=== PATIENT | male | born 1980 | race Caucasian/White ===

== ENCOUNTER 2020-03-17 17:51 | Emergency (ER) | payer OTHER, SELFPAY ==
[2020-03-17 17:58] VITALS: PULSE 65; RESP 20; TEMP 37.2; O2SAT 99; BMI 29.0
--- NOTE | 2020-03-17 18:37 | ED_ITS ---
HPI - Back Pain/Injury General Chief Complaint: Back Pain/Injury Stated Complaint: flank pain Time Seen by Provider: 03/17/20 18:18 Source: patient Mode of arrival: ambulatory Limitations: no limitations History of Present Illness HPI Narrative: patient presents to ED for back pain radiating down both legs. Patient states lower back pain began yesterday. Patient denies any flank pain, fever, chills, nausea, vomiting. Patient denies any urinary /bowel incontinence. Patient denies any recent trauma. Patient states history of chronic back pain since having an accident 6 months ago. Patient states back pain is worse on movement. Patient denies any hematuria, penile discharge, testicular pain, or dysuria. Related Data Previous Rx's Medication Instructions Recorded cyclobenzaprine 10 mg PO TID PRN #18 tab 03/17/20 naproxen 500 mg PO BID PRN #20 tab 03/17/20 Allergies Allergy/AdvReac Type Severity Reaction Status Date / Time No Known Allergies Allergy Verified 03/17/20 19:10 [No Known Allergies*] Review of Systems Review of Systems: Yes all other systems are reviewed and are negative Constitutional: Constitutional: Reports as per HPI and Reports no additional constitutional complaints Eyes: Eyes: Reports as per HPI and Reports no additional eye complaints ENT: Reports system reviewed and no additional complaints, except as doc umented and Reports as per HPI Cardiovascular: Cardiovascular: Reports as per HPI and Reports no additional cardiovascular complaints Respiratory: Respiratory: Reports as per HPI and Reports no additional respiratory complaints Gastrointestinal: Gastrointestinal: Reports as per HPI and Reports no additional gastrointestinal complaints Genitourinary: Genitourinary: Reports no additional male genitourinary complaints and Reports as per HPI Musculoskeletal: Musculoskeletal: Reports no additional musculoskeletal complaints, Reports as per HPI and Reports back pain Neurologic: Reports system reviewed and no additional complaints, except as documented and Reports as per HPI Psychiatric: Psychiatric: Reports no additional psychiatric complaints and Reports as per HPI [facility] Past Medical History Medical History (Updated 03/18/20 @ 00:00 by Background Daemon) No known health problems Social History Social History Smoked in Last 30 Days: No Use of substances other than those prescribed or required for medical reasons: No Advance Directives: No Advance Directives Information Provided: Yes Physical Exam Vital Signs: Vital Signs: Last Vital Signs Temp 98 F 03/17/20 19:12 Pulse 68 03/17/20 20:51 Resp 18 03/17/20 20:51 BP 115/77 03/17/20 20:51 Pulse Ox 96 03/17/20 20:51 Body Mass Index 29.0 Const: General: cooperative, healthy appearing, comfortable, no acute distress, well developed, alert and awake HENMT: Head: Yes normal to inspection and Yes No palpable skull fracture present Eyes: General: appearance normal, both eyes and all related structures Neck: Neck: Yes normal visual inspection, Yes full ROM, Yes no lymphadenopathy, Yes no meningeal signs, Yes trachea midline, Yes supple and No tender Chest: Chest palpation & inspection: normal inspection of the chest, normal palpation of entire chest wall and no localized rib tenderness Resp: Effort & Inspection: normal respiratory effort and able to speak in complete sentences Auscultation: clear to auscultation bilaterally Cardio: Jugular venous distension: no JVD Heart sounds: S1 normal heart sound present and S2 normal heart sound present GI: Other: Rectal exam: patient has good rectal tone and has sensation in perineal area and saddle. Inspection: Yes normal to inspection and No abdominal wall ecchymosis Palpation (GI): Soft to palpation, not firm, nontender, no guarding and not rigid : General: No CVA tenderness and Yes no CVA tenderness Back/Spine/Pelvis: Back: no CVA tenderness, No CVA tenderness and back tenderness ( Lower lumbar tenderness) Skin: General skin exam: no rashes or lesions noted Neuro: General: gait normal, tone normal, no meningeal signs and CN's II-XI intact bilaterally Cranial nerves: Yes CN's II-XII intact bilaterally Extrem: General: Yes normal to inspection and Yes full ROM Psych: Appearance: grossly normal and well [facility] Course Course Course Narrative: history physical exam does not indicate kidney stones. history physical exam indicates back pain exacerbation. Patient given Toradol and Flexeril. patient will have lumbar x-ray. Patient will have UA to see if there is any blood and there was blood patient will be sent for CT scan. Presently history physical exam does not indicate cord compression or epidural abscess. Patient does not have any history of drug use. Reevaluation(s) Reevaluation #1: x-ray shows arthritis of the back. History physical exam does not indicate cord compression or epidural abscess. Patient states pain feel better and able to walk on his own. Time: 20:29 MDM - Back Pain/Injury MDM Narrative Medical decision making narrative: lumbar arthritis Lab Data Labs: Lab Results 03/17/20 Range/Units 19:16 Urine Color YELLOW Urine Appearance CLEAR Urine pH 7.0 (5.0-8.0) Ur Specific [place] 1.020 (1.005-1.025) Urine Protein NEG (NEG-TRACE) MG/DL Urine Glucose (UA) NEG (NEG) MG/DL Urine Ketones NEG (NEG) MG/DL Urine Blood NEG (NEG) Urine Nitrite NEG (NEG) Ur Leukocyte Esterase NEG (NEG) Discharge Plan Discharge Clinical Impression: Lumbar radiculopathy Patient Disposition: Home, Self-Care Instructions: Lumbar Radiculopathy (ED) Additional Instructions: return to the ED immediately for worsening back pain, urinary / bowel incontinence, inability to walk, abdominal pain, flank pain, nausea, vomitting, fever, chills, dysuria, hematuria, testicular pain, or any other concerning symptoms. Please follow up with your PCP. Prescriptions: New naproxen 500 mg tablet 500 mg PO BID PRN (Reason: pain) Qty: 20 RF: 0 cyclobenzaprine 10 mg tablet 10 mg PO TID PRN (Reason: pain) Qty: 18 RF: 0 Stand Alone Forms: Work/School Release Interventions: ED Discharge Assessment Last Done: 03/17/20 20:52 Discharge Date/Time: 03/17/20 20:50 Print Language: Chinese
[2020-03-17 19:12] VITALS: BP 116/77; PULSE 63; RESP 18; TEMP 36.6; O2SAT 98
[2020-03-17] MEDS: Ketorolac Tromethamine 60 MG/2 ML VIAL IM (19:17)
[2020-03-17] MEDS: Cyclobenzaprine HCl 10 MG TABLET PO (19:17)
--- NOTE | 2020-03-17 19:39 | XR_ITS ---
EXAMINATION: XR LUMBOSACRAL SPINE CLINICAL INFORMATION: Lower back pain COMPARISON: Lumbar spine 01/18/2020 TECHNIQUE: Three views of the lumbosacral spine. FINDINGS: Compared with the prior study there has been no significant interval change. Again noted is a mild scoliosis convex to the right. Mild disc space narrowing seen at at L4-L5 and to a greater extent at L5-S1. Some anterior osteophytes are noted arising from S1. No acute fractures or bony destructive lesions seen. XR/XR lumbar spine 2-3V IMPRESSION: Scoliosis and degenerative changes most prominent at L5-S1, unchanged when compared to the prior study.
[2020-03-17 19:43] LABS: Glucose Urine UA NEG (NEG); Leukocyte Esterase Urine NEG (NEG); Nitrite Urine NEG (NEG); Urine Blood NEG (NEG); Urine Ketones NEG (NEG); Urine Protein NEG (NEG-TRACE)
[2020-03-17 19:46] LABS: Appearance Urine CLEAR; Color Urine YELLOW
[2020-03-17 20:51] VITALS: BP 115/77; PULSE 68; RESP 18; O2SAT 96
== END 2020-03-17 20:50 | disposition home or self-care (01) ==
PROVIDERS: Physician Assistant; Emergency Provider Emergency Medicine
DX: M54.16 Radiculopathy, lumbar region (principal); M54.5 Low back pain; M79.605 Pain in left leg; M79.604 Pain in right leg; Z79.899 Other long term (current) drug therapy
CPT/HCPCS: 72100; 81003; 96372; 99284; J1885

== ENCOUNTER 2020-08-23 18:18 | Emergency (ER) | payer OTHER, SELFPAY ==
[2020-08-23 19:12] VITALS: BP 128/78; PULSE 69; RESP 16; TEMP 37; O2SAT 98; BMI 29.1
--- NOTE | 2020-08-23 20:40 | ED.EYEPROB ---
HPI - Eye Problem General Chief complaint: Eye Problems Stated complaint: eye issue Time Seen by Provider: 08/23/20 20:39 Source: patient Mode of arrival: ambulatory Limitations: no limitations History of Present Illness HPI Narrative: Right eye redness/irritation for past 2 days woke up with discharge. Does not wear contacts. No recent injury or foreign body. chief complaint: eye redness Onset (ago): day(s) Onset description: gradual Duration: constant Location: right eye Eye Symptoms: burning and redness Place: home Mechanism: none Severity: mild Associated symptoms: none Treatments Prior to Arrival: none Related Data Previous Rx's Medication Instructions Recorded cyclobenzaprine 10 mg PO TID PRN #18 tab 03/17/20 naproxen 500 mg PO BID PRN #20 tab 03/17/20 erythromycin 0.5 inch OPHTHALMIC (EYE) QID 7 08/23/20 Days #1 g Allergies Allergy/AdvReac Type Severity Reaction Status Date / Time No Known Allergies Allergy Verified 08/23/20 19:19 [No Known Allergies*] Review of Systems Review of Systems: Constitutional: No Weight loss, No Fever, No Chills, No Night Sweats, No Fatigue, No Malaise ENT/Mouth: No Hearing loss, No Ear Pain, No Nasal Congestion, No Sinus Pain, No Hoarseness, No sore throat, No Rhinorrhea, No Swallowing Difficulty Eyes: No Eye Pain, No Swelling, + Redness, No Foreign Body, No Discharge, No Vision Changes Cardiovascular: No Chest Pain, No SOB, No Dyspnea on Exertion, No Orthopnea, No Edema, No Palpitations Respiratory: No Cough, No Sputum, No Wheezing, No Smoke Exposure, No Dyspnea Gastrointestinal: No Nausea, No Vomiting, No Diarrhea, No Constipation, No abdominal Pain, No Hematochezia, No Melena Genitourinary: Neg Musculoskeletal: No joint pain, No Myalgias, No Joint Swelling Skin: No Skin Lesions, No rash Neuro: No Weakness, No Numbness, No Paresthesias, No Loss of Consciousness, No Dizziness, No Headache Psych: No Social Issues Heme/Lymph: No Bruising, No Bleeding,No Lymphadenopathy Endocrine: No Polyuria, No Polydipsia, No Temperature Intolerance Yes all other systems are reviewed and are negative PMFSH Past Medical History Medical History Cataract Early cataracts, bilateral No known health problems Social History Social History Advance Directives: No Advance Directives Information Provided: No Physical Exam Vital Signs: Vital Signs: Last Vital Signs Temp 98.6 F 08/23/20 19:12 Pulse 69 08/23/20 19:12 Resp 16 08/23/20 19:12 BP 128/78 08/23/20 19:12 Pulse Ox 98 08/23/20 19:12 Body Mass Index 29.1 Reviewed Const: General: cooperative, healthy appearing, comfortable, no acute distress, well developed, alert and awake HENMT: Head: Yes normal to inspection Ears: hearing grossly normal bilaterally Eyes: General: appearance normal, both eyes and all related structures Visual Jacinto: normal visual jacinto by confrontation Conjunctivae: conjunctival abnormal (Erythematous and injected) right Sclerae: sclerae normal Corneas: corneas normal Pupils: Equal, round and reactive pupils present EOM: EOMs intact bilaterally Resp: Effort & Inspection: normal respiratory effort, no audible wheezes, no cough and no respiratory distress Skin: General skin exam: no rashes or lesions noted, elasticity normal and turgor normal Wounds: no wounds Nails: normal Neuro: General: normal sensation to monofilament Cranial nerves: Yes Equal, round and reactive pupils present Extrem: General: No cyanosis Psych: Appearance: grossly normal and well kempt Discharge Plan Discharge Clinical Impression: Bacterial conjunctivitis Patient Disposition: Home, Self-Care Instructions: Conjunctivitis (ED) Prescriptions: New erythromycin 5 mg/gram (0.5 %) ointment 0.5 inch ophthalmic (eye) QID 7 Days Qty: 1 RF: 1 No Action naproxen 500 mg tablet 500 mg PO BID PRN (Reason: pain) Qty: 20 RF: 0 cyclobenzaprine 10 mg tablet 10 mg PO TID PRN (Reason: pain) Qty: 18 RF: 0 Referrals: ED Physician,Generic [Emergency Provider] - 2 days Stand Alone Forms: Work/School Release
== END 2020-08-23 21:13 | disposition home or self-care (01) ==
PROVIDERS: Emergency Provider Internal Medicine
DX: H10.9 Unspecified conjunctivitis (principal); H57.11 Ocular pain, right eye
CPT/HCPCS: 99283

== ENCOUNTER 2020-10-02 23:28 | Inpatient (IN) | payer OTHER, SELFPAY ==
--- NOTE | ~2020-10-02 | CT_ITS ---
EXAMINATION: CT ABDOMEN AND PELVIS WITHOUT CONTRAST CLINICAL INFORMATION: Right flank pain COMPARISON: 12/11/2016 TECHNIQUE: Multidetector volumetric imaging was performed from the superior aspect of the liver through the pubic symphysis. Sagittal and coronal reformatted images were obtained on the technologist's workstation. This CT examination was performed using dose optimization techniques as appropriate, variously including the following: *Automated exposure control *Adjustment of mA and/or kV according to patient size (this includes techniques or standardized protocols for targeted exams where dose is matched to indication/reason for exam; i.e. extremities or head) *Use of iterative reconstruction technique DLP: 626 mGy-cm FINDINGS: LUNG BASES: The visualized lung bases are unremarkable. LIVER, GALLBLADDER, AND BILIARY TREE: The liver is normal in size, shape, and attenuation. Right hepatic lobe calcifications suggestive of granuloma. No biliary ductal dilatation is present. The gallbladder is unremarkable with no evidence of radiopaque gallstones, gallbladder wall thickening, or obvious pericholecystic inflammatory changes. PANCREAS: Unremarkable. SPLEEN: Unremarkable. ADRENAL GLANDS: Unremarkable. KIDNEYS AND URETERS: There is a 4 mm calculus in the distal right ureter near the ureterovesicular junction with mild hydronephrosis. No left hydronephrosis. Punctate calculus noted in the lower left kidney. BLADDER: Minimally distended and grossly unremarkable. GASTROINTESTINAL TRACT: Free air is present around the splenic flexure and proximal descending colon. There is some mural prominence of the proximal descending colon, though the colon is not fully distended in this region. No evidence of bowel obstruction. No free fluid is seen. Patient is status post appendectomy. ABDOMINAL WALL: No significant hernia is appreciated. LYMPH NODES: Normal. VASCULAR: Unremarkable. PELVIC VISCERA: Unremarkable. OSSEOUS STRUCTURES: Bilateral L5 pars defects are noted. There is disc space narrowing and endplate osteophytosis at L5-S1. CT/CT abdomen pelvis wo con IMPRESSION: 1. Free air adjacent to the splenic flecture and proximal descending colon most suspicious for sequelae of bowel perforation. There is some mural prominence of the proximal descending colon which could be secondary to inflammation. Colonic mass cannot be excluded. 2. Distal right ureteral calculus measuring 4 mm with mild right hydronephrosis. This critical result was discussed with Dr. Malik on 10/03/2020 2:42 AM, and it was ascertained that the content and urgency of the report was understood at the time of direct communication.
--- NOTE | ~2020-10-02 | CT_ITS ---
EXAMINATION: CT ABDOMEN AND PELVIS WITHOUT CONTRAST CLINICAL INFORMATION: Free air. Follow-up COMPARISON: CT abdomen and pelvis 10/03/2020 TECHNIQUE: Multidetector volumetric imaging was performed from the superior aspect of the liver through the pubic symphysis. Sagittal and coronal reformatted images were obtained on the technologist's workstation. This CT examination was performed using dose optimization techniques as appropriate, variously including the following: *Automated exposure control *Adjustment of mA and/or kV according to patient size (this includes techniques or standardized protocols for targeted exams where dose is matched to indication/reason for exam; i.e. extremities or head) *Use of iterative reconstruction technique DLP: 525 mGy-cm FINDINGS: LUNG BASES: There is bibasilar atelectasis or scarring. Heart size is normal. LIVER, GALLBLADDER, AND BILIARY TREE: The liver is normal in size, shape, and attenuation. No focal hepatic lesion or biliary ductal dilatation is present. There is a punctate calcification in the right hepatic lobe. No focal lesions seen. There is no intrahepatic ductal dilatation. The gallbladder is unremarkable with no evidence of radiopaque gallstones, gallbladder wall thickening, or obvious pericholecystic inflammatory changes. PANCREAS: Unremarkable. SPLEEN: Unremarkable. ADRENAL GLANDS: Unremarkable. KIDNEYS AND URETERS: The kidneys are normal in size, shape, and attenuation. There is mild hydroureteronephrosis with proximal periureteral and inferior pole perinephric stranding. Previously visualized 4 mm right distal ureteral stone is not visualized at this time. No radiopaque calculi seen in the kidneys. There is no left-sided hydronephrosis. BLADDER: Unremarkable. GASTROINTESTINAL TRACT: The small and large bowel are unremarkable. There are surgical sutures of the tip of the appendix likely from previous appendectomy. The appendix is not visualized. ABDOMINAL WALL: A small umbilical hernia containing fat is noted. LYMPH NODES: Normal. VASCULAR: Unremarkable. PELVIC VISCERA: Unremarkable. OSSEOUS STRUCTURES: No lytic or sclerotic process seen. There is mild degenerative changes and ventral and posterior spondylosis at L5-S1 disc level. CT/CT abdomen pelvis wo con IMPRESSION: The right distal ureteral stone seen on the previous exam has resolved. There is mild hydroureteronephrosis and periureteral and perinephric stranding which is stable. No radiopaque renal calculi seen. Mild constipation.
[2020-10-03] VITALS (10 sets, daily range): BP systolic 109–132; BP diastolic 59–85; PULSE 64–83; RESP 16–20; TEMP 36.3–37.4; O2SAT 96–100; BMI 28.5
[2020-10-03 00:55] LABS: MANUAL DIFF FLAG NO
[2020-10-03 00:58] LABS: Basophils Percent Auto 0.2 % (0-2); Eosinophils Absolute Auto 0.1 X10*3/uL (0.0-0.4); Eosinophils Percent Auto 0.3 % (0-4); Hematocrit 44.3 % (42-52); Hemoglobin 15.2 g/dl (14.0-18.0); Imm Gran Abs Auto 0.09 X10*3/uL (0.00-0.03); Imm Gran Pct Auto 0.5 % (0.0-0.4); Lymphocytes Absolute Auto 1.7 X10*3/uL (1.2-4.9); Lymphocytes Percent Auto 9.3 % (20-40); Mean Corpuscular HGB Conc 34.3 g/dl (31.0-36.0); Mean Corpuscular Hemoglobin 30.2 pg (27.0-33.0); Mean Corpuscular Volume 88.1 fL (80-98); Mean Platelet Volume 10.5 fL (9.4-12.4); Monocytes Absolute Auto 1.1 X10*3/uL (0.1-1.2); Monocytes Percent Auto 6.1 % (2-11); Neutrophils Absolute Auto 15.1 X10*3/uL (2.0-8.3); Neutrophils Percent Auto 83.6 % (45-73); Platelet Count 286 X10*3/uL (160-400); Red Blood Count 5.03 X10*6/uL (4.60-5.80); Red Cell Distribution Width 11.9 % (11.0-16.0); White Blood Count 18.1 X10*3/uL (4.8-10.8)
[2020-10-03 01:00] LABS: Glucose Urine UA NEG (NEG); Leukocyte Esterase Urine NEG (NEG); Nitrite Urine NEG (NEG); Specific Gravity - Urine >= 1.030 (1.005-1.025); Urine Blood 2+ (NEG); Urine Ketones NEG (NEG); Urine Protein NEG (NEG-TRACE)
[2020-10-03 01:05] LABS: Appearance Urine CLEAR; Color Urine YELLOW
[2020-10-03 01:19] LABS: Bacteria Urine 1+ /LPF; Squamous Epithelial Cell Urine 1+ /LPF
[2020-10-03 01:20] LABS: Mucus Urine 1+ /LPF
[2020-10-03 01:22] LABS: Alanine Aminotransferase 39 U/L (0-40); Albumin Level 4.5 g/dL (3.5-5.0); Alkaline Phosphatase 68 U/L (39-117); Anion Gap 17 (12-20); Aspartate Amino Transferase 17 U/L (5-37); Bilirubin Total 0.6 mg/dL (0.0-1.0); Blood Urea Nitrogen 21 mg/dL (9-16); Calcium 9.9 mg/dL (8.4-10.2); Carbon Dioxide 24 mmol/L (22-29); Chloride 104 mmol/L (96-108); Creatinine Clr Calc Pharmacy 79.2; Estimated Glomerular Filt Rate 54; Glucose Random 207 mg/dL (60-115); Potassium 4.1 mmol/L (3.3-5.1); Sodium 141 mmol/L (135-145); Total Protein 7.3 g/dL (6.5-8.0)
[2020-10-03] MEDS: HYDROmorphone HCl 0.5 MG/0.5 ML SYRINGE IVPUSH ×2 (01:59→08:11)
[2020-10-03] MEDS: 0.9 % Sodium Chloride 1,000 ML 999 ML IV (01:59)
[2020-10-03] MEDS: ondansetron HCL 4 MG/2 ML VIAL IVPUSH ×2 (01:59→13:41)
[2020-10-03] MEDS: Ketorolac Tromethamine 15 MG/ML VIAL IVPUSH (01:59)
--- NOTE | 2020-10-03 02:10 | ED.ABDPAIN ---
HPI - Abdominal Pain General Chief Complaint: Abdominal Pain Stated Complaint: Abd pain Time Seen by Provider: 10/03/20 01:46 History of Present Illness HPI narrative: Patient 40-year-old male presents today with having abdominal pain over the right flank area. Sharp. No fever no chills. Patient already had an appendectomy. Positive nausea. No vomiting. No change in bowel movement. Patient from home. Never had a kidney stone in the past. Pain is 10/10. Not change with movement. Related Data Previous Rx's Medication Instructions Recorded cyclobenzaprine 10 mg PO TID PRN #18 tab 03/17/20 naproxen 500 mg PO BID PRN #20 tab 03/17/20 erythromycin 0.5 inch OPHTHALMIC (EYE) QID 7 08/23/20 Days #1 g Allergies Allergy/AdvReac Type Severity Reaction Status Date / Time No Known Allergies Allergy Verified 08/23/20 19:19 [No Known Allergies*] Review of Systems Review of Systems Constitutional: No Weight loss, No Fever, No Chills, No Night Sweats, No Fatigue, No Malaise ENT/Mouth: No Hearing loss, No Ear Pain, No Nasal Congestion, No Sinus Pain, No Hoarseness, No sore throat, No Rhinorrhea, No Swallowing Difficulty Eyes: No Eye Pain, No Swelling, No Redness, No Foreign Body, No Discharge, No Vision Changes Cardiovascular: No Chest Pain, No SOB, No Dyspnea on Exertion, No Orthopnea, No Edema, No Palpitations Respiratory: No Cough, No Sputum, No Wheezing, No Smoke Exposure, No Dyspnea Gastrointestinal: Positive Nausea, No Vomiting, No Diarrhea, No Constipation, positive abdominal Pain, No Hematochezia, No Melena Genitourinary: no irregular bleeding, No Dysuria, No Urinary Frequency, No Hematuria, No Urinary Incontinence, No Urgency, No Flank Pain, No Urinary Flow Changes, No Hesitancy Musculoskeletal: No joint pain, No Myalgias, No Joint Swelling Skin: No Skin Lesions, No rash Neuro: No Weakness, No Numbness, No Paresthesias, No Loss of Consciousness, No Dizziness, No Headache Psych: No Anxiety/Panic, No Depression, No SI/HI/AH/VH, No Social Issues, Heme/Lymph: No Bruising, No Bleeding,No Lymphadenopathy Endocrine: No Polyuria, No Polydipsia, No Temperature Intolerance Physical Exam Vital Signs: Vital Signs: Last Vital Signs Temp 97.3 F 10/03/20 00:55 Pulse 74 10/03/20 00:55 Resp 20 10/03/20 01:59 BP 120/85 10/03/20 00:55 Pulse Ox 100 10/03/20 00:55 Body Mass Index 28.5 Appearance: Alert. Oriented X3. No acute distress. Eyes: Pupils equal, round and reactive to light. ENT: Pharynx normal. Neck: Normal inspection. Neck supple. No lymph nodes noted. No crepitus CVS: Normal heart rate and rhythm. Pulses normal. Normal S1 and S2 Respiratory: No respiratory distress. Breath sounds normal. No Wheezing. No rales Abdomen: Soft and nontender. No rigidity. No distention. good BS x4 Skin: Skin warm and dry. Normal skin color. Normal skin turgor. Extremities: No lower extremity edema. Neurovascular intact to all extremities. No Lacerations. No Rash Neuro: Oriented X 3. No motor deficit. No sensory deficit. Moving all extermities. No slurred speech MDM - Abdominal Pain MDM Narrative Medical decision making narrative: Positive CVA tenderness on the right side. Question kidney stones. We will go ahead and get a CT scan of the abdomen pelvis. Currently in stable condition. Given pain medication in the emergency department. CT scan of the abdomen suggestive of a kidney stone in the right ureter. In addition there was free air that was noted. Cultures will be obtained. Antibiotic will be started. Patient's white count was elevated. Patient's case discussed with surgery. Will admit patient for further evaluation and monitoring. Currently in stable condition. Lab Data Result diagrams: 10/03/20 00:45 10/03/20 00:45 Labs: Lab Results 10/03/20 10/03/20 10/03/20 Range/Units 00:45 00:45 00:45 WBC 18.1 H (4.8-10.8) X10*3/uL RBC 5.03 (4.60-5.80) X10*6/uL Hgb 15.2 (14.0-18.0) g/dl Hct 44.3 (42-52) % MCV 88.1 (80-98) fL MCH 30.2 (27.0-33.0) pg MCHC 34.3 (31.0-36.0) g/dl RDW 11.9 (11.0-16.0) % Plt Count 286 (160-400) X10*3/uL MPV 10.5 (9.4-12.4) fL Immature Gran % (Auto) 0.5 H (0.0-0.4) % Neut % (Auto) 83.6 H (45-73) % Lymph % (Auto) 9.3 L (20-40) % [place] % (Auto) 6.1 (2-11) % Eos % (Auto) 0.3 (0-4) % Baso % (Auto) 0.2 (0-2) % Lymph # (Auto) 1.7 (1.2-4.9) X10*3/uL [place] # (Auto) 1.1 (0.1-1.2) X10*3/uL Eos # (Auto) 0.1 (0.0-0.4) X10*3/uL Baso # (Auto) 0.0 (0.0-0.2) X10*3/uL Abs Immat Gran (auto) 0.09 H (0.00-0.03) X10*3/uL Absolute Neuts (auto) 15.1 H (2.0-8.3) X10*3/uL Absolute Nucleated RBC 0.000 (0.0-0.012) X10*3/uL Nucleated RBC % (auto) 0.0 (0.0-0.2) /100WBC Sodium 141 (135-145) mmol/L Potassium 4.1 (3.3-5.1) mmol/L Chloride 104 (96-108) mmol/L Carbon Dioxide 24 (22-29) mmol/L Anion Gap 17 (12-20) BUN 21 H (9-16) mg/dL Creatinine 1.43 H (0.5-1.4) mg/dL Estim Creat Clear Calc 79.2 Estimated GFR 54 Random Glucose 207 H (60-115) mg/dL Calcium 9.9 (8.4-10.2) mg/dL Total Bilirubin 0.6 (0.0-1.0) mg/dL AST 17 (5-37) U/L ALT 39 (0-40) U/L Alkaline Phosphatase 68 (39-117) U/L Total Protein 7.3 (6.5-8.0) g/dL Albumin 4.5 (3.5-5.0) g/dL Urine Color YELLOW Urine Appearance CLEAR Urine pH 6.0 (5.0-8.0) Ur Specific [place] >= 1.030 H (1.005-1.025) Urine Protein NEG (NEG-TRACE) MG/DL Urine Glucose (UA) NEG (NEG) MG/DL Urine Ketones NEG (NEG) MG/DL Urine Blood 2+ H (NEG) Urine Nitrite NEG (NEG) Ur Leukocyte Esterase NEG (NEG) Urine RBC 15-29 H (0) /HPF Urine WBC 1-4 (0-4) /HPF Ur Squamous Epith Cells 1+ /LPF Urine Bacteria 1+ /LPF Urine Mucus 1+ /LPF Critical Care Time Critical Care Time Total Critical Care Time: 40 Attestation: I have personally provided 40 minutes of critical care time exclusive of time spent on separately billable procedures. Time includes review of lab data, radiology results, discussion with consultants, and monitoring for potential decompensation. Interventions were performed as documented above Discharge Plan Discharge Clinical Impression: Renal colic, Perforation bowel Prescriptions: No Action naproxen 500 mg tablet 500 mg PO BID PRN (Reason: pain) Qty: 20 RF: 0 cyclobenzaprine 10 mg tablet 10 mg PO TID PRN (Reason: pain) Qty: 18 RF: 0 erythromycin 5 mg/gram (0.5 %) ointment 0.5 inch ophthalmic (eye) QID 7 Days Qty: 1 RF: 1 PMFSH Past Medical History Attestation statement: The following information was validated with the patient. Medical History Cataract Early cataracts, bilateral No known health problems Social History Social History Advance Directives: No Advance Directives Information Provided: No
--- NOTE | 2020-10-03 07:16 | PM.HPGS ---
History of Present Illness History of Present Illness Date of Service: 10/03/20 Chief complaint: R ureteral stone possible contained perforation Narrative: Arthur Ng is a 40 year old male who was feeling well until last night when he had acute onset of right lower quadrant abdominal pain. The pain was waxing and waning, severe in intensity at its worst. He had not experienced similar pain in the past. He does not report fever or chills. He had 1 episode of loose stool yesterday. Bowel movements have been normal otherwise. Appetite has been good. He does not report dysuria or hematuria. He has not undergone colonoscopy in the past. He reports that he has experienced occasional bright red bleeding with bowel movements that occurs if he eats very spicy food. He reports a history of hemorrhoids. In the emergency department, a CT scan of the abdomen and pelvis was obtained. This demonstrated a right ureteral stone, but also findings consistent with perforation of the colon in the region of the splenic flexure. Laboratory studies revealed an elevated white blood count of 18.2 and BUN of 21, creatinine of 1.43. Blood sugar was elevated at 207. Review of Systems Constitutional: Constitutional: Denies body ache(s), Denies chills, Denies fever(s) and Denies headache(s) Eyes: Comments: History of right eye surgery, chronic erythema ENT: Reports Normal hearing present, Denies vertigo, Denies dizziness and Denies headache(s) Cardiovascular: Cardiovascular: Denies chest pain, Denies palpitations and Denies dyspnea Comments: History of chest pain several months ago. He saw a student success advisor for this and reports that he is waiting to have testing scheduled, which he thinks will be 1 month of monitoring Respiratory: Respiratory: Denies cough, Denies dyspnea and Denies wheezing Gastrointestinal: Gastrointestinal: Reports as per HPI Genitourinary: Genitourinary: Reports no additional male genitourinary complaints Musculoskeletal: Musculoskeletal: Reports back pain (Intermittent, related to heavy lifting at work) Neurologic: Reports Normal hearing present, Denies vertigo, Denies dizziness and Denies headache(s) Endocrine: Endocrine: Denies palpitations Hematologic/Lymphatic: Comments: No history of unusual bleeding or blood clots Allergic/Immunologic: Allergic/Immunologic: Denies wheezing PMFSH Past Medical History Medical History Cataract Early cataracts, bilateral No known health problems Surgical History Surgical History (Updated 10/03/20 @ 07:24 by Zulema Swenson MD) History of eye surgery History of laparoscopic appendectomy Social History Social History Advance Directives: No Advance Directives Information Provided: No Meds Allergies Allergy/AdvReac Type Severity Reaction Status Date / Time No Known Allergies Allergy Verified 10/03/20 05:25 [No Known Allergies*] Physical Exam Vital Signs: Vital Signs: Last Vital Signs Temp 97.3 F 10/03/20 00:55 Pulse 74 10/03/20 00:55 Resp 20 10/03/20 01:59 BP 120/85 10/03/20 00:55 Pulse Ox 100 10/03/20 00:55 Body Mass Index 28.5 Const: Other: Appears uncomfortable intermittently General: cooperative and alert HENMT: Head: Yes normocephalic and Yes atraumatic Eyes: Sclerae: scleral abnormal right (Injected) scleral injection (Right) Neck: Neck: Yes trachea midline and Yes supple Resp: Effort & Inspection: normal respiratory effort Auscultation: clear to auscultation bilaterally Cardio: Rate: regular rate Rhythm: regular rhythm GI: Other: Round, semi firm, mildly tender right lower quadrant, bowel sounds active, no palpable masses, no other abdominal tenderness, specifically no left upper quadrant tenderness Skin: Other: Normal color, warm and dry Neuro: Cranial nerves: Yes Normal hearing present Extrem: General: Yes normal to inspection Psych: Other: Com, cooperative Insight: Good insight present (Psych) Results Results Labs: Short CBC 10/03/20 Range/Units 00:45 WBC 18.1 H (4.8-10.8) X10*3/uL Hgb 15.2 (14.0-18.0) g/dl Hct 44.3 (42-52) % Plt Count 286 (160-400) X10*3/uL BMP 10/03/20 00:45 Sodium 141 Potassium 4.1 Chloride 104 Carbon Dioxide 24 BUN 21 H Creatinine 1.43 H Calcium 9.9 Liver Function 10/03/20 Range/Units 00:45 Total Bilirubin 0.6 (0.0-1.0) mg/dL AST 17 (5-37) U/L ALT 39 (0-40) U/L Alkaline Phosphatase 68 (39-117) U/L Albumin 4.5 (3.5-5.0) g/dL Urine 10/03/20 Range/Units 00:45 Urine Color YELLOW Urine Appearance CLEAR Urine pH 6.0 (5.0-8.0) Ur Specific Emerson >= 1.030 H (1.005-1.025) Urine Protein NEG (NEG-TRACE) MG/DL Urine Glucose (UA) NEG (NEG) MG/DL Assessment and Plan (1) Renal colic: Status: Acute IV hydration, analgesics, strain urine (2) Perforation bowel: Status: Acute 40-year-old male presenting with colicky right lower quadrant abdominal pain and CT findings demonstrating a right ureteral stone, but also findings consistent with likely contained perforation around splenic flexure of the colon. He has no associated symptoms. He will be admitted for observation and IV antibiotic therapy. I reviewed the findings with him and explained that urgent surgery might be required. If he remains asymptomatic, short interval CT scan will be obtained to reassess the process. Further plans will be made depending upon his clinical progress. Will follow blood sugar, renal function. He is aware that if recovery is uneventful, interval colonoscopy will be needed. Procedures Date of Service Date of Service: 10/03/20
[2020-10-03 07:44] LABS: IDNOW Serial# 9DD0AD1C
[2020-10-03 07:45] LABS: COVID-19 Test Negative (Negative)
[2020-10-03] MEDS: Piperacillin Sodium/Tazobactam 3.375 GM in 0.9 % Sodium Chloride 50 ML IV ×3 (08:12→19:18)
[2020-10-03 08:29] LABS: Lactic Acid 1.6 mmol/L (0.5-2.0)
--- NOTE | 2020-10-03 10:18 | PC.NURSE ---
PT AOX4, MEDICATED FOR PAIN STATES LEVEL IS IMPROVED, AMB WITH STEADY GAIT. PT STATES WITH LAST VOID HE NOTICED BLOOD. PT NEEDS BEING MET
[2020-10-03] MEDS: 0.9 % Sodium Chloride 1,000 ML 100 ML IVCONT ×2 (11:33→19:11)
--- NOTE | 2020-10-03 11:35 | PC.NURSE ---
0159 PAIN REASSESSMENT NOT CHARTED BY PREVIOUS SHIFT
[2020-10-03] MEDS: oxyCODONE HCl Immed Release 5 MG TABLET 10 MG PO ×2 (13:41→19:33)
--- NOTE | 2020-10-03 15:19 | PC.NURSE ---
UNIT WOULD NOT TAKE REPORT BECAUSE ANOTHER 8HR RN WAS TAKING OVER FOR THE ONE THAT IS LEAVING
--- NOTE | 2020-10-03 15:46 | MHC.CM.ED ---
PATIENT LIVES ALONE. HE HAS DAILY RN VISITS THROUGH [facility]. HE DOES QUALIFY FOR ORNAMENTAL IRONWORKER SERVICES, BUT NO ONE HAS STARTED YET. NO DME PATIENT HAS HAD HIS ONE DOSE OF EZIO AND EZIO COVID VACCINE APPROXIMATELY TWO WEEKS PRIOR. IMM 10/03 SIGNED AND COPY IN CHART.
--- NOTE | 2020-10-03 16:11 | PM.EVENT ---
Event Note Date of Service: 10/03/20 Event Note: Reports less RLQ discomfort, no other abdominal pain BP 132/81, HR 83, T 98.2, Resp 16 Alert, NAD Abdomen is soft, mildly tender RLQ, otherwise nontender. Continue Clear liquid diet, Zosyn. If remains asymptomatic with regard to splenic flexure of colon, likely will repeat CT tomorrow, consider advancing diet if stable.
[2020-10-03 16:32] LABS: Glucose, Whole Blood 122 mg/dL (60-115)
[2020-10-03 20:24] LABS: Glucose, Whole Blood 122 mg/dL (60-115)
[2020-10-04] VITALS (7 sets, daily range): BP systolic 98–126; BP diastolic 65–78; PULSE 62–72; RESP 15–18; TEMP 36.2–37; O2SAT 97–100
[2020-10-04] MEDS: Piperacillin Sodium/Tazobactam 3.375 GM in 0.9 % Sodium Chloride 50 ML IV ×4 (01:13→20:08)
[2020-10-04] MEDS: oxyCODONE HCl Immed Release 5 MG TABLET 10 MG PO (01:21)
[2020-10-04] MEDS: 0.9 % Sodium Chloride 1,000 ML 100 ML IVCONT ×2 (05:25→16:14)
[2020-10-04 07:14] LABS: Hematocrit 42.1 % (42-52); Hemoglobin 14.3 g/dl (14.0-18.0); Mean Corpuscular Hemoglobin 30.6 pg (27.0-33.0); Mean Corpuscular Volume 90.1 fL (80-98); Mean Platelet Volume 10.7 fL (9.4-12.4); Platelet Count 213 X10*3/uL (160-400); Red Blood Count 4.67 X10*6/uL (4.60-5.80); Red Cell Distribution Width 12.3 % (11.0-16.0); White Blood Count 9.3 X10*3/uL (4.8-10.8)
--- NOTE | 2020-10-04 07:25 | PM.PNGS ---
Subjective Subjective Date of Service: 10/04/20 Interval history: patient reports some pain in the right lower quadrant, pain is better today than yesterday. Physical Exam Vital Signs: Vital Signs: Last Vital Signs Temp 97.6 F 10/04/20 07:23 Pulse 62 10/04/20 07:23 Resp 18 10/04/20 07:23 BP 110/66 10/04/20 07:23 Pulse Ox 97 10/04/20 07:23 Body Mass Index 28.5 Const: General: cooperative, comfortable, no acute distress, well developed, alert and awake Resp: Effort & Inspection: normal respiratory effort, no stridor and not tachypneic GI: Other: soft, nondistended, mild tenderness in the right lower quadrant, no rebound, no guarding Abdomen image: 1. site of max tenderness Skin: General skin exam: no rashes or lesions noted Extrem: General: Yes no clubbing, cyanosis or edema Progress Note: A&P Assessment and plan (1) Renal colic: Status: Acute Assessment and Plan: Continue fluid hydration, pain management (2) Perforation bowel: Status: Acute Assessment and Plan: Minimal abdominal pain this morning, improved from yesterday and no peritoneal signs on examination. Check AM labs, plan follow up CT abdomen/pelvis in 24 hours to evaluate free air. Continue Zosyn. Fall Risk Details Current Medications: Current Medications Generic Name Dose Route Start Last Admin Trade Name Freq PRN Reason Stop Dose Admin Acetaminophen 650 mg 10/03/20 12:48 Acetaminophen 325 Mg Tablet PO Q6H PRN Fever Hydromorphone HCl 0.5 mg 10/03/20 12:48 Hydromorphone Hcl 0.5 Mg/0.5 Ml Syringe IV Q3H PRN Pain, Severe (Pain Scale 7-10) Sodium Chloride 1,000 mls @ 100 mls/hr 10/03/20 07:45 10/04/20 05:25 Ns IVCONT 100 mls/hr .Q10H MARCIA Administration Piperacillin Sod/Tazobactam 50 mls @ 100 mls/hr 10/03/20 14:00 10/04/20 01:43 Sod 3.375 gm/ Sodium Chloride IV Infused Q6H MARCIA Infusion Ondansetron HCl 4 mg 10/03/20 12:48 10/03/20 13:41 Ondansetron Hcl 4 Mg/2 Ml Vial IVPUSH 4 mg Q8H PRN Administration Nausea Oxycodone HCl 10 mg 10/03/20 12:48 10/04/20 01:21 Oxycodone Hcl Immed Release 5 Mg Tablet PO 10 mg Q4H PRN Administration Pain, Severe (Pain Scale 7-10) Time Spent With Patient Time: Total time spent is greater than 50% in coordination of care (as documented) at patient's floor/unit and/or counseling patient: Time with patient: 15 - 24 minutes Procedures Date of Service Date of Service: 10/04/20
[2020-10-04 07:50] LABS: Anion Gap 11 (12-20); Blood Urea Nitrogen 16 mg/dL (9-16); Calcium 8.6 mg/dL (8.4-10.2); Carbon Dioxide 24 mmol/L (22-29); Chloride 109 mmol/L (96-108); Creatinine Clr Calc Pharmacy 69.4; Estimated Glomerular Filt Rate 47; Glucose Fasting 107 mg/dL (60-99); Potassium 4.3 mmol/L (3.3-5.1); Sodium 140 mmol/L (135-145)
[2020-10-04 07:52] LABS: Glucose, Whole Blood 143 mg/dL (60-115)
[2020-10-04 12:02] LABS: Glucose, Whole Blood 92 mg/dL (60-115)
--- NOTE | 2020-10-04 14:03 | PC.NURSE ---
0800 passed sm black stone, found in strainer. Denies pain.
--- NOTE | 2020-10-04 15:14 | MHC.CM.PN ---
CM MET WITH PT WITH THE ASSISTANCE OF [facility] [employer]., PT REPORTS HE LIVES WITH HIS AND KIDS AND IS INDEPENDENT WITH CARE, WORKS AND DRIVES. PT DENIES USING DME OR HOME SERVICES. PT DOES NOT HAVE A HCP AND DECLINES TO COMPLETE ONE TODAY. PT REPORTS HE DOES NOT HAVE A PCP AT THIS TIME, PT EDUCATED ON HOW TO OBTAIN ONE BASED ON HIS INSURANCE. CURRENT DC PLAN IS HOME WITH NO SERVICES PT WILL SELF ARRANGE TRANSPORT
[2020-10-04 16:15] LABS: Glucose, Whole Blood 94 mg/dL (60-115)
[2020-10-04 20:19] LABS: Glucose, Whole Blood 114 mg/dL (60-115)
[2020-10-05] MEDS: Piperacillin Sodium/Tazobactam 3.375 GM in 0.9 % Sodium Chloride 50 ML IV ×2 (01:28→07:45)
[2020-10-05 03:47] VITALS: BP 121/64; PULSE 65; RESP 18; TEMP 36; O2SAT 98
[2020-10-05] MEDS: 0.9 % Sodium Chloride 1,000 ML 100 ML IVCONT (04:16)
[2020-10-05 07:05] VITALS: BP 91/51; PULSE 58; RESP 18; TEMP 36.6; O2SAT 97
[2020-10-05 07:11] LABS: Glucose, Whole Blood 96 mg/dL (60-115)
[2020-10-05 11:22] VITALS: BP 114/73; PULSE 85; RESP 16; TEMP 36.3; O2SAT 99
[2020-10-05 11:23] LABS: Glucose, Whole Blood 79 mg/dL (60-115)
--- NOTE | 2020-10-05 12:24 | PM.DS ---
DS: Providers Provider Date of Service: 10/05/20 Date of admission: 10/03/20 07:14 Date of discharge: 10/05/20 Primary care physician: Sue Riggs MD Admitting clinician: Zulema Swenson Discharging clinician: Solo Man DS: Diagnosis Discharge Diagnosis (1) Renal colic: Status: Acute (2) Perforation bowel: Status: Acute Problem details: Follow-up CT abdomen and pelvis revealed no bowel perforation or free air. DS: Medications Discharge Medications Home Medications: Previous Rx's Medication Instructions Recorded cyclobenzaprine 10 mg PO TID PRN #18 tab 03/17/20 naproxen 500 mg PO BID PRN #20 tab 03/17/20 erythromycin 0.5 inch OPHTHALMIC (EYE) QID 7 08/23/20 Days #1 g DS: Summary Hospital Course Hospital Course: Arthur Ng is a 40 year old male who was feeling well until the night prior to admission when he had acute onset of right lower quadrant abdominal pain. The pain was waxing and waning, severe in intensity at its worst. He had not experienced similar pain in the past. He does not report fever or chills. He had 1 episode of loose stool yesterday. Bowel movements have been normal otherwise. Appetite has been good. He does not report dysuria or hematuria. He has not undergone colonoscopy in the past. He reports that he has experienced occasional bright red bleeding with bowel movements that occurs if he eats very spicy food. He reports a history of hemorrhoids. In the emergency department, a CT scan of the abdomen and pelvis was obtained. This demonstrated a right ureteral stone, but also findings consistent with perforation of the colon in the region of the splenic flexure. Laboratory studies revealed an elevated white blood count of 18.2 and BUN of 21, creatinine of 1.43. Blood sugar was elevated at 207. On examination his abdomen was noted to be round, semi firm, mildly tender right lower quadrant, bowel sounds active, no palpable masses, no other abdominal tenderness, specifically no left upper quadrant tenderness. The assessment at the time of admission: 40-year-old male presenting with colicky right lower quadrant abdominal pain and CT findings demonstrating a right ureteral stone, but also findings consistent with likely contained perforation around splenic flexure of the colon. He has no associated symptoms. He will be admitted for observation and IV antibiotic therapy. Dr. Swenson reviewed the findings with him and explained that urgent surgery might be required. If he remains asymptomatic, short interval CT scan will be obtained to reassess the process. Further plans will be made depending upon his clinical progress. Will follow blood sugar, renal function. He is aware that if recovery is uneventful, interval colonoscopy will be needed. On hospital day 2. the patient remained asymptomatic other than some mild right lower quadrant abdominal pain. He denied upper abdominal pain. Laboratory showed a normalization of the WBC. Examination revealed only mild tenderness in the right abdomen with no peritoneal signs and no tenderness in the left upper abdomen. A repeat CT the abdomen and pelvis was obtained. This revealed: The right distal ureteral stone seen on the previous exam has resolved. There is mild hydroureteronephrosis and periureteral and perinephric stranding which is stable. No radiopaque renal calculi seen. [No free air or perforation was noted]. Patient does report passing a stone in his urine with improvement of his symptoms. After completion of the CT , he was started on clear liquids and advance to regular diet over the next 24 hours. He tolerated the regular diet well without increased abdominal pain, nausea, or vomiting. Patient is subsequently discharged to home in stable condition on hospital day three. He may resume normal activity and normal diet. He should follow up in the office in approximately 2 weeks for follow-up examination. He should return sooner for increased abdominal pain, nausea, vomiting, fever, or chills. Time spent discussing smoking cessation with patient: 3 to 10 minutes Time Spent with Patient Time attestation: Total time spent providing and/or coordinating discharge services: Discharge coordination time: Less than 30 minutes Quality: Stroke Does the patient have a stroke diagnosis?: No Physical Exam Vital Signs: Vital Signs: Last Vital Signs Temp 97.4 F 10/05/20 11:22 Pulse 85 10/05/20 11:22 Resp 16 10/05/20 11:22 BP 114/73 10/05/20 11:22 Pulse Ox 99 10/05/20 11:22 Body Mass Index 28.5 Const: General: cooperative, healthy appearing, comfortable, no acute distress, well developed, alert, awake and Physically active Nutritional Appearance: average body habitus Orientation/consciousness: patient oriented x3 Limitations: no limitations Resp: Effort & Inspection: normal respiratory effort GI: Palpation (GI): Soft to palpation, nontender, no guarding, not rigid and No hepatosplenomegaly present Percussion: Yes normal to percussion Auscultation: normal bowel sounds Skin: General skin exam: no rashes or lesions noted Neuro: General: patient oriented x3 Psych: Appearance: grossly normal DS: Data Data Completed and Pending Labs on day of discharge: Laboratory Results - last 24 hr 10/04/20 10/04/20 10/05/20 16:05 20:16 07:07 POC Glucose 94 114 96 10/05/20 11:19 POC Glucose 79 Preliminary micro results at discharge 10/03/20 08:02 Blood Culture - Preliminary Blood - Venous No growth after 48 hours. 10/03/20 08:02 Blood Culture - Preliminary Blood - Venous No growth after 48 hours. Discharge Plan Discharge Patient Disposition: Home, Self-Care Discharge Diagnosis: Renal colic Referrals: Sue Riggs MD [Primary Care Provider] - 1 Week Solo Man MD [Physician] - 2 Weeks Discharge Medications: Continued naproxen 500 mg tablet 500 mg PO BID PRN (Reason: pain) Qty: 20 RF: 0 cyclobenzaprine 10 mg tablet 10 mg PO TID PRN (Reason: pain) Qty: 18 RF: 0 erythromycin 5 mg/gram (0.5 %) ointment 0.5 inch ophthalmic (eye) QID 7 Days Qty: 1 RF: 1 Discharge Orders: Discharge Order (Routine); Ordered 10/05/20 Ordered By: Solo Man Diet: advance to usual diet Activity on Discharge: As tolerated Stand Alone Forms: Patient Portal Discharge page, Work/School Release Care Plan Goals: Return to normal diet and activity Health Concerns: Abdominal pain Plan of Treatment: Fluid hydration, repeat CT abdomen and pelvis Assessment: Renal colic, no bowel perforation Discharge Date/Time: 10/05/20 15:08
--- NOTE | 2020-10-05 13:01 | MHC.CM.PN ---
PT DISCHARGING TODAY HOME SELF-CARE, FAMILY FOR TRANSPORT
== END 2020-10-05 15:08 | disposition home or self-care (01) | DRG 254 ==
LOC: HO.ED 10-03 01:20 → HO.EDOVER 10-03 07:26 → HO.S3 10-03 14:35
PROVIDERS: Admitting Provider Surgery; Emergency Provider Emergency Medicine Emergency Medical Services; PCP Internal Medicine; Visit Provider Surgery
DX: K63.1 Perforation of intestine (nontraumatic) (principal); N20.1 Calculus of ureter; Z79.1 Long term (current) use of non-steroidal anti-inflammatories (NSAID); Z87.891 Personal history of nicotine dependence; Z79.899 Other long term (current) drug therapy
CPT/HCPCS: 36415; 74176; 80048; 80053; 81001; 81003; 82947; 83605; 85025; 85027; 87040; 87635; 99285; J1170; J1885; J2405; J2543

== ENCOUNTER 2020-12-08 15:34 | Emergency (ER) | payer OTHER, SELFPAY ==
[2020-12-08 17:06] VITALS: BP 120/80; PULSE 53; RESP 18; TEMP 37; O2SAT 99; BMI 28.3
--- NOTE | 2020-12-08 17:07 | ED.GENADULT ---
HPI - General Adult General Chief complaint: General Medical Stated complaint: lower back pain Time Seen by Provider: 12/08/20 17:06 Related Data Previous Rx's Medication Instructions Recorded cyclobenzaprine 10 mg tablet 10 mg PO TID PRN #18 tab 03/17/20 naproxen 500 mg tablet 500 mg PO BID PRN #20 tab 03/17/20 erythromycin 5 mg/gram (0.5 %) eye 0.5 inch OPHTHALMIC (EYE) QID 7 08/23/20 ointment Days #1 g hydrocortisone 1 % topical cream 1 appl TOPICAL BID PRN #28.4 g 12/06/20 (Proctocort) Allergies Allergy/AdvReac Type Severity Reaction Status Date / Time No Known Allergies Allergy Verified 12/08/20 17:06 [No Known Allergies*] [facility] Past Medical History Medical History (Updated 12/08/20 @ 22:22 by Carmen Jrogensen NP) Cataract Early cataracts, bilateral Surgical History History of eye surgery History of laparoscopic appendectomy Social History Social History Household Members: Spouse and Children Housing: Apartment Do you presently have visiting nurse or other home services: Yes Alcohol intake: current Alcohol intake frequency: holidays/special occasions only Alcohol type: beer Patient Tobacco Use Status: Former Tobacco user Tobacco use type: Cigar Second Hand Smoke Exposure: No Use of substances other than those prescribed or required for medical reasons: No Advance Directives: No Advance Directives Information Provided: No service: No Current occupational status: employed Physical Exam Vital Signs: Vital Signs: Last Vital Signs Temp 97.8 F 12/08/20 20:00 Pulse 54 12/08/20 20:00 Resp 16 12/08/20 20:00 BP 126/80 12/08/20 20:00 Pulse Ox 99 12/08/20 20:00 Body Mass Index 28.3 Course Course Course Narrative: This is RME in triage: 40 yo M with PMHX cataracts c/o worsening internal hemorrhoid pain x 3 weeks. Having hard time sitting 2/2 pain, + blood. +constipation. Denies abd pain, N/V. Admits to similar sx in the past Patient was triaged to [facility] [place] Medical Decision Making Lab Data Labs: Lab Results 12/08/20 Range/Units 21:00 Stool Occult Blood POSITIVE (NEGATIVE) Discharge Plan Discharge Clinical Impression: Rectal pain, Hemorrhoids, internal Patient Disposition: Home, Self-Care Instructions: Hemorrhoids (ED), Rectal Bleeding (ED), Rectal Pain (ED) Additional Instructions: Se le evalu? para detectar rodolfo de color ashford brillante en el recto y dolor rectal. Tienes hemorroides internas. Garret un seguimiento con el Dr. Pace?kelechi, ?l es un cirujano general. Garret un seguimiento con Gastroenterolog?a para el dolor y el sangrado rectal. Te recomend? al Dr. Rolle. Utilice kwadwo?ento de Dibucaine seg?n sea necesario para el manejo del dolor. Puede considerar los ba?os de asiento para ayudar a aliviar el dolor. Omar por elegir valarie departamento de emergencias para vance evaluaci?n. Garret un seguimiento con vance m?dico de atenci?n primaria seg?n sea necesario. Regrese al departamento de emergencias por cualquier s?ntoma nuevo, preocupante o que empeore. You were evaluated for bright red blood per rectum and rectal pain. You do have internal hemorrhoids. Please follow-up with Dr. Golden, he is a general surgeon. Please follow up with Gastroenterology for rectal pain and bleeding. I referred you to Dr. Rolle. Please use Dibucaine ointment as needed for pain management. You may consider Sitz baths to help alleviate pain. Thank you for choosing this emergency department for evaluation. Please follow-up with primary care physician as needed. Return to the emergency department for any new, concerning, or worsening symptoms. Prescriptions: No Action naproxen 500 mg tablet 500 mg PO BID PRN (Reason: pain) Qty: 20 RF: 0 cyclobenzaprine 10 mg tablet 10 mg PO TID PRN (Reason: pain) Qty: 18 RF: 0 erythromycin 5 mg/gram (0.5 %) ointment 0.5 inch ophthalmic (eye) QID 7 Days Qty: 1 RF: 1 hydrocortisone [Proctocort] 1 % cream 1 appl topical BID PRN (Reason: rash) Qty: 28.4 RF: 0 Referrals: Олег Golden MD [Physician] - 2 days (Internal hemorrhoids) Tello Rolle [Physician] - 2 days (Rectal pain and bleeding) Interventions: ED Discharge Assessment Last Done: 12/08/20 22:56 Discharge Date/Time: 12/08/20 22:57
[2020-12-08 20:00] VITALS: BP 126/80; PULSE 54; RESP 16; TEMP 36.6; O2SAT 99
--- NOTE | 2020-12-08 20:17 | ED.BACK ---
HPI - Back Pain/Injury General Chief Complaint: General Medical Stated Complaint: lower back pain Time Seen by Provider: 12/08/20 17:06 Source: patient Mode of arrival: ambulatory Limitations: no limitations History of Present Illness HPI Narrative: 40-year-old male presents with bright red blood per rectum and rectal pain. States he has had this for approximately 3 weeks. Does not report family history of colon cancer. MD elicited complaint: other (Rectal pain) Onset (ago): week(s) (Three) Timing: intermittent Severity: moderate Similar Symptoms Previously: No Quality: burning Exacerbating factors: other (Bowel movement) Relieving factors: none Associated symptoms: denies other symptoms Related Data Previous Rx's Medication Instructions Recorded cyclobenzaprine 10 mg tablet 10 mg PO TID PRN #18 tab 03/17/20 naproxen 500 mg tablet 500 mg PO BID PRN #20 tab 03/17/20 erythromycin 5 mg/gram (0.5 %) eye 0.5 inch OPHTHALMIC (EYE) QID 7 08/23/20 ointment Days #1 g hydrocortisone 1 % topical cream 1 appl TOPICAL BID PRN #28.4 g 12/06/20 (Proctocort) Allergies Allergy/AdvReac Type Severity Reaction Status Date / Time No Known Allergies Allergy Verified 12/08/20 17:06 [No Known Allergies*] Review of Systems Review of Systems: Constitutional: No Fever, No Chills ENT/Mouth: No Ear Pain, No Hoarseness, No sore throat Eyes: No Eye Pain, No Swelling, No Redness, No Foreign Body Cardiovascular: No Chest Pain, No SOB Respiratory: No Cough, No Dyspnea Gastrointestinal: Rectal pain, positive bright red blood per rectum, positive hemorrhoids, No Nausea, No Vomiting, No Diarrhea, No abdominal Pain Genitourinary: No Dysuria, No Hematuria Musculoskeletal: positive joint pain, No Myalgias, No Joint Swelling Skin: No Skin lacerations, No rash Neuro: No Weakness, No Numbness, No Paresthesias, No Loss of Consciousness, No Dizziness, No Headache Psych: No Anxiety/Panic, No Depression Heme/Lymph: no easy bruising, no Lymphadenopathy Endocrine: No Polyuria, No Polydipsia Yes all other systems are reviewed and are negative [facility] Past Medical History Attestation statement: The following information was validated with the patient. Source: old records reviewed Medical History (Updated 12/08/20 @ 22:22 by Carmen Jorgensen NP) Cataract Early cataracts, bilateral Surgical History History of eye surgery History of laparoscopic appendectomy Social History Social History Household Members: Spouse and Children Housing: Apartment Do you presently have visiting nurse or other home services: Yes Alcohol intake: current Alcohol intake frequency: holidays/special occasions only Alcohol type: beer Patient Tobacco Use Status: Former Tobacco user Tobacco use type: Cigar Second Hand Smoke Exposure: No Use of substances other than those prescribed or required for medical reasons: No Advance Directives: No Advance Directives Information Provided: No service: No Current occupational status: employed Physical Exam Vital Signs: Vital Signs: Last Vital Signs Temp 97.8 F 12/08/20 20:00 Pulse 54 12/08/20 20:00 Resp 16 12/08/20 20:00 BP 126/80 12/08/20 20:00 Pulse Ox 99 12/08/20 20:00 Body Mass Index 28.3 Appearance: Alert. Oriented X3. No acute distress. Eyes: Pupils equal, round and reactive to light. ENT: Pharynx normal. Neck: Normal inspection. Neck supple. CVS: Normal heart rate and rhythm. Pulses normal. Respiratory: No respiratory distress. Breath sounds normal. Abdomen: Soft and nontender. Genitourinary: Normal rectal tone, external hemorrhoid noted, multiple internal hemorrhoids noted on digital exam. Skin: Skin warm and dry. Normal skin color. Normal skin turgor. Extremities: No lower extremity edema. Neuro: No motor deficit. No sensory deficit. Course Course Course Narrative: 40-year-old male presents with bleeding hemorrhoids. Rectal exam completed with RN as inspector heating and refrigeration, internal hemorrhoids noted. Guaiac stool was positive for heme. Order for rectal ointment for pain management. I did refer patient to Dr. Golden for surgical consult for internal hemorrhoids, also had patient follow-up with Gastroenterology for possible colonoscopy or investigation of rectal bleeding. 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 Google translate utilized for discharge instructions. MDM - Back Pain/Injury MDM Narrative Medical decision making narrative: Rectal bleeding, anal fissure, hemorrhoids Medical Records Attestation: I reviewed the patient's medical records. Lab Data Attestation: I reviewed the patient's lab results. Labs: Lab Results 12/08/20 Range/Units 21:00 Stool Occult Blood POSITIVE (NEGATIVE) Discharge Plan Discharge Clinical Impression: Rectal pain, Hemorrhoids, internal Patient Disposition: Home, Self-Care Instructions: Hemorrhoids (ED), Rectal Bleeding (ED), Rectal Pain (ED) Additional Instructions: Se le evalu? para detectar rodolfo de color [place] brillante en el recto y dolor rectal. Tienes hemorroides internas. Garret un seguimiento con el Dr. Pace?kelechi, ?l es un cirujano general. Garret un seguimiento con Gastroenterolog?a para el dolor y el sangrado rectal. Te recomend? al Dr. Rolle. Utilice kwadwo?ento de Dibucaine seg?n sea necesario para el manejo del dolor. Puede considerar los ba?os de asiento para ayudar a aliviar el dolor. Omar por elegir valarie departamento de emergencias para vance evaluaci?n. Garret un seguimiento con vance m?dico de atenci?n primaria seg?n sea necesario. Regrese al departamento de emergencias por cualquier s?ntoma nuevo, preocupante o que empeore. You were evaluated for bright red blood per rectum and rectal pain. You do have internal hemorrhoids. Please follow-up with Dr. Golden, he is a general surgeon. Please follow up with Gastroenterology for rectal pain and bleeding. I referred you to Dr. Rolle. Please use Dibucaine ointment as needed for pain management. You may consider Sitz baths to help alleviate pain. Thank you for choosing this emergency department for evaluation. Please follow-up with primary care physician as needed. Return to the emergency department for any new, concerning, or worsening symptoms. Prescriptions: No Action naproxen 500 mg tablet 500 mg PO BID PRN (Reason: pain) Qty: 20 RF: 0 cyclobenzaprine 10 mg tablet 10 mg PO TID PRN (Reason: pain) Qty: 18 RF: 0 erythromycin 5 mg/gram (0.5 %) ointment 0.5 inch ophthalmic (eye) QID 7 Days Qty: 1 RF: 1 hydrocortisone [Proctocort] 1 % cream 1 appl topical BID PRN (Reason: rash) Qty: 28.4 RF: 0 Referrals: Олег Golden MD [Physician] - 2 days (Internal hemorrhoids) Tello Rolle [Physician] - 2 days (Rectal pain and bleeding) Interventions: ED Discharge Assessment Last Done: 12/08/20 22:56 Discharge Date/Time: 12/08/20 22:57
[2020-12-08 21:26] LABS: OBS Int Ctl Valid YES; OBS1 POSITIVE (NEGATIVE)
--- NOTE | 2020-12-08 21:40 | PC.NURSE ---
pharmacy contacted for cream, awaiting at this [facility].
== END 2020-12-08 22:57 | disposition home or self-care (01) ==
PROVIDERS: Nurse Practitioner Family; Emergency Provider Emergency Medicine Emergency Medical Services
DX: K64.8 Other hemorrhoids (principal); M54.2 Cervicalgia; Z79.899 Other long term (current) drug therapy; Z87.891 Personal history of nicotine dependence
CPT/HCPCS: 82272; 99283; 99284

== ENCOUNTER → 2020-12-15 13:12 | Outpatient (BNVA) | payer OTHER, SELFPAY | PROVIDERS: Visit Provider Surgery | DX: K60.0 Acute anal fissure (principal); Z87.891 Personal history of nicotine dependence; Z79.899 Other long term (current) drug therapy | CPT/HCPCS: 99202 ==

== ENCOUNTER → 2021-01-04 08:45 | Outpatient (REF) | payer OTHER, SELFPAY ==
--- NOTE | 2021-01-04 08:52 | ECG_ITS ---
Test Reason : chest pain Blood Pressure : / mmHG Vent. Rate : 053 BPM Atrial Rate : 053 BPM P-R Int : 128 ms QRS Dur : 100 ms QT Int : 422 ms P-R-T Axes : 057 043 033 degrees QTc Int : 395 ms Sinus bradycardia Otherwise normal ECG No previous ECGs available Referred By: Karlee Meraz Electronically Signed By:RAVI VILLALPANDO
[2021-01-04 09:47] LABS: MANUAL DIFF FLAG NO
[2021-01-04 09:54] LABS: Basophils Percent Auto 0.5 % (0-2); Eosinophils Absolute Auto 0.1 X10*3/uL (0.0-0.4); Eosinophils Percent Auto 2.1 % (0-4); Hematocrit 45.1 % (42-52); Hemoglobin 15.5 g/dl (14.0-18.0); Imm Gran Abs Auto 0.01 X10*3/uL (0.00-0.03); Imm Gran Pct Auto 0.2 % (0.0-0.4); Lymphocytes Absolute Auto 1.3 X10*3/uL (1.2-4.9); Lymphocytes Percent Auto 20.8 % (20-40); Mean Corpuscular HGB Conc 34.4 g/dl (31.0-36.0); Mean Corpuscular Hemoglobin 30.6 pg (27.0-33.0); Mean Corpuscular Volume 89.1 fL (80-98); Mean Platelet Volume 10.8 fL (9.4-12.4); Monocytes Absolute Auto 0.6 X10*3/uL (0.1-1.2); Monocytes Percent Auto 9.8 % (2-11); Neutrophils Absolute Auto 4.1 X10*3/uL (2.0-8.3); Neutrophils Percent Auto 66.6 % (45-73); Platelet Count 256 X10*3/uL (160-400); Red Blood Count 5.06 X10*6/uL (4.60-5.80); Red Cell Distribution Width 12.2 % (11.0-16.0); White Blood Count 6.1 X10*3/uL (4.8-10.8)
[2021-01-04 10:11] LABS: Alanine Aminotransferase 42 U/L (0-40); Albumin Level 4.4 g/dL (3.5-5.0); Alkaline Phosphatase 61 U/L (39-117); Anion Gap 10 (12-20); Aspartate Amino Transferase 17 U/L (5-37); Bilirubin Total 0.7 mg/dL (0.0-1.0); Blood Urea Nitrogen 17 mg/dL (9-16); Calcium 10.1 mg/dL (8.4-10.2); Carbon Dioxide 28 mmol/L (22-29); Chloride 107 mmol/L (96-108); Cholesterol 177 mg/dL; Estimated Glomerular Filt Rate > 60; Glucose Fasting 120 mg/dL (60-99); HDL Cholesterol 46 mg/dL; LDL Cholesterol Calculated 115 mg/dl; Potassium 4.3 mmol/L (3.3-5.1); Sodium 141 mmol/L (135-145); Total Protein 7.1 g/dL (6.5-8.0); Triglycerides 83 mg/dL
[2021-01-04 10:37] LABS: Thyroid Stimulating Hormone 0.75 uIU/mL (0.32-4.0)
== END ==
LOC: HO.CARD 08:45
PROVIDERS: PCP Internal Medicine; Visit Provider Internal Medicine
DX: R07.9 Chest pain, unspecified (principal); E78.5 Hyperlipidemia, unspecified; D64.9 Anemia, unspecified
CPT/HCPCS: 36415; 80053; 80061; 84443; 85025; 93005

== ENCOUNTER → 2021-01-07 14:36 | Outpatient (BNVA) | payer OTHER, SELFPAY | PROVIDERS: PCP Internal Medicine; Referring Provider Internal Medicine; Visit Provider Surgery | DX: K60.0 Acute anal fissure (principal) | CPT/HCPCS: 99212 ==

== ENCOUNTER 2021-02-03 13:13 | Outpatient (REF) | payer OTHER, SELFPAY ==
--- NOTE | ~2021-02-03 | US_ITS ---
EXAMINATION: US RETROPERITONEAL LIMITED (RENAL ONLY) CLINICAL INFORMATION: Calculus of kidney. COMPARISON: CT abdomen and pelvis 10/04/2020. TECHNIQUE: Real-time imaging of the kidneys. FINDINGS: RIGHT KIDNEY: 11.5 x 4.7 x 4.9 cm (SAG x AP x TRV). The kidney is normal in size, contour, and echogenicity. Renal cortical thickness is normal. No calculi or focal parenchymal lesions. No hydronephrosis. LEFT KIDNEY: 11.7 x 5.4 x 5.6 cm (SAG x AP x TRV). The kidney is normal in size, contour, and echogenicity. Renal cortical thickness is normal. No calculi or focal parenchymal lesions. No hydronephrosis. US/US renal BI IMPRESSION: Unremarkable examination.
== END 2021-02-03 13:14 | disposition home or self-care (01) ==
LOC: HO.US 13:13
PROVIDERS: PCP Internal Medicine; Visit Provider Internal Medicine
DX: N20.0 Calculus of kidney (principal)
CPT/HCPCS: 76775

== ENCOUNTER → 2021-02-10 10:39 | Outpatient (BNVA) | payer OTHER, SELFPAY | PROVIDERS: Referring Provider Internal Medicine; Visit Provider Surgery | DX: K42.9 Umbilical hernia without obstruction or gangrene (principal); K60.0 Acute anal fissure | CPT/HCPCS: 99212 ==

== ENCOUNTER 2021-03-04 08:26 | Day surgery (SDC) | payer OTHER, SELFPAY ==
[2021-02-25 10:34] VITALS: BMI 28.1
[2021-03-04] VITALS (7 sets, daily range): BP systolic 106–118; BP diastolic 43–76; PULSE 62–93; RESP 16–18; TEMP 36.1–36.8; O2SAT 95–98
--- NOTE | 2021-03-04 08:01 | HO.ANESPROP2 ---
[facility] Active Problems Active Problems: All Active Problems (Updated 02/25/21 @ 10:33 by Mervat Ortiz RN) Rectal pain (Acute) Umbilical hernia (Acute) Skin lesion (Acute) Chest pain (Acute) Overweight (BMI 25.0-29.9) (Acute) Renal calculi (Acute) Pterygium of right eye (Acute) Acute anal fissure (Acute) Past Medical History Medical History Acute anal fissure Cataract Chest pain Overweight (BMI 25.0-29.9) Pterygium of right eye Renal calculi Skin lesion Umbilical hernia Family History Family History Mother Constipation Digestive disorder Father No problems noted. Family history of problems with anesthesia: No Surgical History Surgical History History of eye surgery History of laparoscopic appendectomy History of removal of calculus of renal pelvis through percutaneous nephrostomy History of Problems with Anesthesia: No Social History Social History Household Members: Spouse and Children Housing: Apartment Do you presently have visiting nurse or other home services: Yes Alcohol intake: current Alcohol intake frequency: holidays/special occasions only Alcohol type: beer Patient Tobacco Use Status: Former Tobacco user Tobacco use type: Cigar Second Hand Smoke Exposure: No Use of substances other than those prescribed or required for medical reasons: No Advance Directives: No Advance Directives Information Provided: Yes Advance Directives on File: No service: No Current occupational status: employed Meds Allergies Allergy/AdvReac Type Severity Reaction Status Date / Time No Known Allergies Allergy Verified 03/04/21 08:43 [No Known Allergies*] Exam Exam Date and Time: March 04, 2021 0801 Height,Weight and Vital Signs: Height 5 ft 11 in Weight 91.626 kg Airway Mallampati Class: II TM Dist: >3cm Neck ROM: Full Heart: rrr Lungs: cta Assessment and Plan Assessment Anesthesia Assessment: Anesthesia Plan Discussed Final Anesthetic Review Family History of Problems with Anesthesia: No History of Problems with Anesthesia: No NPO: Yes ASA Class: II Final Preanesthetic Review: No Changes in Pt Med Stat, Meds/Allgs Chart Reviewed and Consent Obtained/Reviewed Patient Risk: Intermediate Procedure Risk: Intermediate Anesthetic Plan Anesthetic Plan: GA Disposition: Standard PACU
--- NOTE | 2021-03-04 09:12 | MHC.SHP ---
Pre-Procedural Eval Section A Date of Service: 03/04/21 Section B Chief Complaint: Umbilical Hernia Allergies: Allergies Allergy/AdvReac Type Severity Reaction Status Date / Time No Known Allergies Allergy Verified 03/04/21 08:43 [No Known Allergies*] Plan I have reviewed the history and physical and performed a pertinent physical examination on my patient. No changes have occurred unless specified.
[2021-03-04] MEDS: Lactated Ringers 1,000 ML 50 ML IVCONT (09:25)
--- NOTE | 2021-03-04 10:23 | P.OP_ITS ---
Operative Note Operative Note Date of Service: 03/04/21 Narrative: Preop diagnosis: Umbilical hernia Postop diagnosis: Umbilical hernia Procedure: Repair of umbilical hernia with Ventralex mesh Surgeon: Олег Golden MD assistant gm of content & delivery: KATE Mckeon Patient is a 41-year-old male with note of a reducible mass on the umbilicus consistent with an umbilical hernia. He understood the technique of repair with mesh. He was aware of the risks, benefits, and alternatives He was brought to the operating room placed supine under general anesthesia via LMA. The abdomen is prepped and draped in the usual sterile fashion. A surgical time-out was done. The patient received cefazolin 2 g IV preoperatively I infiltrated the planned line incision on the supraumbilical margin with lidocaine 1%. I made a supraumbilical curvilinear incision using blade 15. This carried down through the full-thickness skin subcutaneous fat. I then proceeded to dissect the umbilicus off of the rest of the fascia and the hernia using Metzenbaum scissors as well as electrocautery. I continued to lift the umbilicus as a flap until was able to visualize the entire hernia contents. This was fat containing. I dissected the rest of the hernia contents off of the rest of the subcutaneous layer all the way down to the fascia. I then divided adhesions of the fascia towards the contents of the hernia until was able to completely reduce the hernia. I applied a Kierra clamp on the fascial edge and examined the underside and this appeared to be clear of adhesions or bowel loops. The fascial defect was about 1.2 cm in diameter. I used a Ventralex small-sized mesh and positioned this under the fascia. This mesh was then flattened. I secured the Prolene straps of the mesh to the fascial edge with Prolene 2 sutures. I trimmed the Prolene straps flush on the fascial level. I then closed the fascial defect with [id number] Maxon 0 stitch. I irrigated. I reapposed the subcutaneous layer with Dexon 3-0 sutures. Skin closure was achieved with Dexon 4-0 subcuticular running stitch. Dressings were applied. The incision was infiltrated with Marcaine 0.5% for postop analgesia The procedure was then completed. The patient tolerated procedure well. There were no complication noted. Initial and final counts of sponges and instruments were correct. Estimated blood loss was less than 3 cc. The patient was extubated without difficulty and transferred to the recovery room with stable vital signs.
[2021-03-04] MEDS: oxyCODONE HCl Immed Release 5 MG TABLET PO (11:03)
== END 2021-03-04 12:45 | disposition home or self-care (01) ==
PROVIDERS: PCP Internal Medicine; Visit Provider Surgery
PROC: (CPT 49585; principal; 2021-03-04 10:00)
DX: K42.9 Umbilical hernia without obstruction or gangrene (principal); K60.0 Acute anal fissure; E66.3 Overweight; Z68.28 Body mass index [BMI] 28.0-28.9, adult; Z87.442 Personal history of urinary calculi; Z87.891 Personal history of nicotine dependence
CPT/HCPCS: 49585; C1781; J0690; J1100; J2250; J2405; J3010

== ENCOUNTER → 2021-03-16 08:47 | Outpatient (BNVA) | payer OTHER, SELFPAY | PROVIDERS: PCP Internal Medicine; Referring Provider Internal Medicine; Visit Provider Surgery | DX: Z48.815 Encounter for surgical aftercare following surgery on the digestive system (principal); Z87.19 Personal history of other diseases of the digestive system | CPT/HCPCS: 99212 ==

== ENCOUNTER → 2021-04-28 08:40 | Outpatient (REF) | payer OTHER, SELFPAY ==
--- NOTE | 2021-04-28 08:42 | CA_ITS ---
Acquisition Time: 2021-04-28 10:07:50 Total Exercise Time: 00:09:33 Test Indications: cp Medications: see chart Protocol: CARMEN Max HR: 157 BPM 88% of Pred: 178 BPM Max BP: 138/080 mmHG Max Work Load: 10.9 METS Exercise stress test with exercise 9 min 33 sec of Carmen protocol, without anginal symptoms, with isolated PACs, with normotensive resposne to exercise, without EKG changes meeting criteria for ischemia. Test reviewed with Dr Snowden. Referred By: Karlee Meraz Overread By: SHANNON CORTES
== END ==
LOC: HO.CARD 08:40
PROVIDERS: PCP Internal Medicine; Visit Provider Internal Medicine
DX: R07.9 Chest pain, unspecified (principal)
CPT/HCPCS: 93017

== ENCOUNTER → 2021-05-13 10:38 | Outpatient (BNVA) | payer OTHER, SELFPAY | PROVIDERS: PCP Internal Medicine; Visit Provider Urology | DX: N20.0 Calculus of kidney (principal) | CPT/HCPCS: 99202 ==

== ENCOUNTER 2022-05-30 07:41 | Outpatient (REF) | payer OTHER, SELFPAY ==
[2022-05-30 08:40] LABS: Alanine Aminotransferase 40 U/L (0-40); Alkaline Phosphatase 63 U/L (39-117); Anion Gap 14 (12-20); Aspartate Amino Transferase 20 U/L (5-37); Bilirubin Total 0.6 mg/dL (0.0-1.0); Blood Urea Nitrogen 17 mg/dL (9-16); Calcium 9.5 mg/dL (8.4-10.2); Carbon Dioxide 21 mmol/L (22-29); Chloride 108 mmol/L (96-108); Cholesterol 187 mg/dL; Estimated Glomerular Filt Rate > 60; Glucose Fasting 113 mg/dL (60-99); HDL Cholesterol 55 mg/dL; LDL Cholesterol Calculated 115 mg/dl; Potassium 4.4 mmol/L (3.3-5.1); Sodium 139 mmol/L (135-145); Total Protein 6.7 g/dL (6.5-8.0); Triglycerides 88 mg/dL
== END 2022-05-30 07:42 | disposition home or self-care (01) ==
LOC: HO.LAB 07:41
PROVIDERS: PCP Internal Medicine; Visit Provider Internal Medicine
DX: Z00.00 Encounter for general adult medical examination without abnormal findings (principal)
CPT/HCPCS: 36415; 80053; 80061

== ENCOUNTER 2023-02-05 20:33 | Emergency (ER) | payer OTHER, SELFPAY ==
--- NOTE | ~2023-02-05 | XR_ITS ---
EXAMINATION: XR HIP, LEFT CLINICAL INFORMATION: Hip pain fall COMPARISON: None available. TECHNIQUE: Single view of the pelvis 2 views of the left hip FINDINGS: No acute visible fracture or dislocation. Joint spaces and alignment are maintained. Soft tissues are unremarkable. XR/XR hip LT w PEL1V IMPRESSION: No acute visible fracture or dislocation.
--- NOTE | ~2023-02-05 | CT_ITS ---
EXAMINATION: CT HEAD WITHOUT CONTRAST CT CERVICAL SPINE WITHOUT CONTRAST CLINICAL INFORMATION: Trauma. Pain. COMPARISON: None available. TECHNIQUE: Contiguous axial imaging was performed through the head and cervical spine without intravenous administration of contrast. This CT examination was performed using dose optimization techniques as appropriate, variously including the following: *Automated exposure control *Adjustment of mA and/or kV according to patient size (this includes techniques or standardized protocols for targeted exams where dose is matched to indication/reason for exam; i.e. extremities or head) *Use of iterative reconstruction technique DLP: 128 mGy-cm FINDINGS: The lateral, third and fourth ventricles are normally outlined. The cortical sulci and basal cisterns are normally outlined as well. There is no acute territorial defect, hemorrhage or midline shift. The extra-axial spaces are unremarkable. Calvarium: Intact. Maxillofacial sinuses and mastoids: Clear as visualized. Cervical spine: The alignment is normal. There is mild diffuse cervical disc degenerative change with mild loss of disc space, mild endplate change and posterior osteophytes associated with mild diffuse facet osteoarthritic hypertrophic change with multilevel minimal spinal canal and multilevel mild neuroforaminal narrowing. There is no fracture. Soft tissues are unremarkable. The visualized upper lung jacinto are clear CT/CT cervical spine wo IV con IMPRESSION: No acute intracranial pathology. Mild cervical disc degenerative change. No evidence for cervical spine fracture or malalignment.
--- NOTE | ~2023-02-05 | CT_ITS ---
EXAMINATION: CT HEAD WITHOUT CONTRAST CT CERVICAL SPINE WITHOUT CONTRAST CLINICAL INFORMATION: Trauma. Pain. COMPARISON: None available. TECHNIQUE: Contiguous axial imaging was performed through the head and cervical spine without intravenous administration of contrast. This CT examination was performed using dose optimization techniques as appropriate, variously including the following: *Automated exposure control *Adjustment of mA and/or kV according to patient size (this includes techniques or standardized protocols for targeted exams where dose is matched to indication/reason for exam; i.e. extremities or head) *Use of iterative reconstruction technique DLP: 128 mGy-cm FINDINGS: The lateral, third and fourth ventricles are normally outlined. The cortical sulci and basal cisterns are normally outlined as well. There is no acute territorial defect, hemorrhage or midline shift. The extra-axial spaces are unremarkable. Calvarium: Intact. Maxillofacial sinuses and mastoids: Clear as visualized. Cervical spine: The alignment is normal. There is mild diffuse cervical disc degenerative change with mild loss of disc space, mild endplate change and posterior osteophytes associated with mild diffuse facet osteoarthritic hypertrophic change with multilevel minimal spinal canal and multilevel mild neuroforaminal narrowing. There is no fracture. Soft tissues are unremarkable. The visualized upper lung jacinto are clear CT/CT head/brain wo IV con IMPRESSION: No acute intracranial pathology. Mild cervical disc degenerative change. No evidence for cervical spine fracture or malalignment.
[2023-02-05 20:36] VITALS: BP 127/79; PULSE 105; RESP 20; TEMP 37.1; O2SAT 97; BMI 35.9
--- NOTE | 2023-02-05 20:40 | ED_ITS ---
HPI - General Adult General Chief complaint: Fall Stated complaint: Fall, LT hip pain Time Seen by Provider: 02/05/23 23:24 Source: patient Mode of arrival: ambulatory Limitations: no limitations History of Present Illness HPI narrative: Patient iva lost balance slipped and fell at 13:00 about 8 steps landed on his left hip complaining of pain on the left lateral aspect of the left hip also hit his head but no loss of consciousness no other injuries Related Data Previous Rx's Medication Instructions Recorded ibuprofen 600 mg tablet 600 mg PO Q6H PRN fever or pain 02/05/23 #30 tabs Allergies Allergy/AdvReac Type Severity Reaction Status Date / Time No Known Allergies Allergy Verified 07/27/22 11:16 [No Known Allergies*] Review of Systems Review of Systems: Yes all other systems are reviewed and are negative [facility] Past Medical History Medical History Acute anal fissure Cataract Chest pain Impaired glucose tolerance Overweight (BMI 25.0-29.9) Physical exam Pterygium of right eye Renal calculi Skin lesion Umbilical hernia Surgical History History of eye surgery History of laparoscopic appendectomy History of removal of calculus of renal pelvis through percutaneous nephrostomy History of umbilical hernia repair (~03/04/21) Family History Family History Mother Constipation Digestive disorder Father No problems noted. Social History Social History Household Members: Spouse and Children Housing: Apartment Do you presently have visiting nurse or other home services: Yes Alcohol intake: current Alcohol intake frequency: holidays/special occasions only Alcohol type: beer Patient Tobacco Use Status: Former Tobacco user Tobacco use type: Cigar e-Cigarette/Vaping Use: Never Used Second Hand Smoke Exposure: No Advance Directives: No Advance Directives Information Provided: No service: No Current occupational status: employed Current occupational exposures/hazards: No Cognitive needs: No Hearing needs: No Vision needs: No Physical Exam ED Vital Signs: Vital Signs - 24 hr 02/05/23 20:36 02/05/23 23:49 Temperature 98.8 F 97.3 F Pulse Rate 105 H 84 Respiratory Rate 20 Blood Pressure 127/79 101/65 Pulse Oximetry 97 98 Oxygen Delivery Method Room Air Room Air BMI result Body Mass Index 35.9 Appearance: Alert. Oriented X3. No acute distress. Eyes: PERRLA, No Nystagmus ENT: Pharynx normal. Oral Mucosa moist AT NC Neck: Normal inspection. Neck supple. No midline tenderness CVS: Normal heart rate and rhythm. Pulses normal. Respiratory: No respiratory distress. Equal air entry bilateral, no wheezing/rales/rhonchi Abdomen: Soft and nontender. Bowel sounds are present, no mass palpable, no CVA tenderness Skin: Skin warm and dry. Normal skin color. Normal skin turgor. Extremities: No lower extremity edema. No calf tenderness tenderness left greater trochanteric area good range of movement of the hip no spinal tenderness Neuro: Oriented X 3. No motor deficit. No sensory deficit.No cerebellar signs , cranial nerves II-XII intact Course Course Course Narrative: RME: 43 yold male presents to the ED for left hip pain after falling down 8 stairs. patient also states headache. patient not on blood thinnders Medications Administered Discontinued Medications Generic Name Dose Route Start Last Admin Trade Name Freq PRN Reason Stop Dose Admin Ibuprofen 600 mg 02/05/23 23:45 02/05/23 23:58 Ibuprofen 600 Mg Tablet PO 02/05/23 23:46 600 mg ONCE ONE Administration Medical Decision Making Medical Decision Making [facility] Narrative: Patient x-ray and CT scan negative for acute discharge patient home ambulatory in the ER likely has contusion of left intertrochanteric area Differential Diagnosis Differential Diagnoses: The differential diagnosis associated with the presentation includes Left hip fracture/head injury/SAH/SDH/cervical spine fracture Radiology Impression Discussion of test interpretation with radiology: I have reviewed the radiologist's reading. Discharge Plan Discharge Clinical Impression: Contusion of left hip Patient Disposition: Home, Self-Care Instructions: Hip Contusion (ED) Additional Instructions: Your x-rays negative for fracture Ibuprofen for pain apply ice pack Prescriptions: New ibuprofen 600 mg tablet 600 mg PO Q6H PRN (Reason: fever or pain) Qty: 30 0RF Discharge Date/Time: 02/06/23 00:15 Print Language: Turkmen
[2023-02-05 23:49] VITALS: BP 101/65; PULSE 84; TEMP 36.3; O2SAT 98
[2023-02-05] MEDS: Ibuprofen 600 MG TABLET PO (23:58)
== END 2023-02-06 00:15 | disposition home or self-care (01) ==
PROVIDERS: Emergency Provider Internal Medicine; PCP Internal Medicine
DX: S70.02XA Contusion of left hip, initial encounter (principal); M54.2 Cervicalgia; R51.9 Headache, unspecified; M25.552 Pain in left hip; X58.XXXA Exposure to other specified factors, initial encounter; Y93.9 Activity, unspecified; Y92.9 Unspecified place or not applicable; Y99.9 Unspecified external cause status; Z87.891 Personal history of nicotine dependence
CPT/HCPCS: 70450; 72125; 73502; 99283; 99284

== ENCOUNTER 2023-05-29 07:49 | Outpatient (AMB) | payer OTHER, SELFPAY ==
[2023-05-29 07:58] VITALS: BP 112/80; BMI 29.8
--- NOTE | 2023-05-29 07:58 | A.OFFPC_ITS ---
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 Accompanied by: Self / Same As Patient Allergies No Known Allergies [No Known Allergies*] Allergy (Verified 05/29/23 08:28) Medication List - Last Reconciled 05/29/23 by Karlee Meraz MD ibuprofen 600 mg PO Q6H PRN Tobacco use date assessed: 05/29/23 Dental Screening Dental Screen Date: 05/29/23 Did you have a dental visit in the last 12 months?: No Did you have a dental problem in the last 6 months where you did not have access to dental care?: No Was dental information given to patient?: Patient has dentist HPI HPI Comments History of Present Illness Details This is a 43-year-old male that comes for his physical exam. Denies any chest pain or shortness of breath. No fever or cough. Has minimal depression and does not need counseling or medication. [facility] Medical History (Updated 05/29/23 @ 09:02 by Karlee Meraz MD) Physical exam Impaired glucose tolerance Umbilical hernia Skin lesion Chest pain Overweight (BMI 25.0-29.9) Renal calculi Pterygium of right eye Acute anal fissure Cataract Surgical History History of umbilical hernia repair (~03/04/21) History of removal of calculus of renal pelvis through percutaneous nephrostomy History of eye surgery History of laparoscopic appendectomy Family History Mother Constipation Digestive disorder Father No problems noted. Social History Household Members: Spouse and Children Housing: Apartment Do you presently have visiting nurse or other home services: Yes Alcohol intake: current Alcohol intake frequency: holidays/special occasions only Alcohol type: beer Patient Tobacco Use Status: Former Tobacco user Tobacco use type: Cigar e-Cigarette/Vaping Use: Never Used Second Hand Smoke Exposure: No service: No Current occupational status: employed Current occupational exposures/hazards: No Cognitive needs: No Hearing needs: No Vision needs: No Questionnaire PHQ-9 Over the last 2 weeks, how often have you been bothered by any of the following problems? 1. Little interest or pleasure in doing things: not at all 2. Feeling down, depressed, or hopeless: several days 3. Trouble falling or staying asleep, or sleeping too much: not at all 4. Feeling tired or having little energy: several days 5. Poor appetite or overeating: several days 6. Feeling bad about yourself - or that you are a failure or have let yourself or your family down: not at all 7. Trouble concentrating on things, such as reading the newspaper or watching television: not at all 8. Moving or speaking so slowly that other people could have noticed. Or the opposite - being so fidgety or restless that you have been moving around a lot more than usual: several days 9. Thoughts that you would be better off or of hurting yourself in some way: not at all Total score: 4 Depression Screening Interpretation: Positive Depression Screening Follow-up: Existing condition Depression Screening Done: Yes 35671 - PHQ-9 Billing: Yes Source: Developed by Drs. Tello Smith, Teresa Diana, Adi Good and colleagues, with an educational karin from [employer]. Thrive Questionnaire Date Thrive assessed: 05/29/23 I am a: Patient What is your living situation today?: I have a steady place to live Within the past 12 months, did the food you bought not last and you didn't have the money to get more?: Never true Within the past 12 months, did you worry whether your food would run out before you got money to buy more?: Never true Do you have trouble paying for medicines?: No Do you have trouble getting transportation to medical appointments?: No Do you have trouble paying your heating and electricity bill?: No Do you have trouble taking care of your child, family member or friend?: No Do you have trouble with day-to-day activities such as bathing, preparing meals, shopping, managing finances, etc.?: No Are you currently unemployed and looking for a job?: No Are you interested in more education?: No Please select the resources that you would like help with: None Currently or been in a relationship where the following occur: no concerns reported THRIVE Score: 0 AUDIT C Alcohol Use Questionnaire (AUDIT-C) 1. How often do you have a drink containing alcohol?: Monthly or less 2. How many drinks containing alcohol do you have on a typical day when you are drinking?: 1 or 2 3. How often do you have six or more drinks on one occasion?: Never Total Score: 1 Score Reviewed/Action Taken: No JOSE CRUZ-7 AMB Questionnaire JOSE CRUZ-7 Date JOSE CRUZ - 7 assessed: 05/29/23 Feeling nervous, anxious, or on edge: 0 = Not at all Not being able to stop or control worryin = Not at all Worrying too much about different things: 0 = Not at all Trouble relaxin = Not at all Being so restless that it is hard to sit still: 0 = Not at all Becoming easily annoyed or irritable: 0 = Not at all Feeling afraid as if something awful might happen: 0 = Not at all Total JOSE CRUZ-7 score (0-4 normal; 5-9 mild; 10-14 moderate; 15-21 severe): 0 Source: Developed by Drs. Tello Smith, Teresa Diana, Adi Good and colleagues, with an educational karin from [employer]. JOSE CRUZ-7 Assessment Billing JOSE CRUZ-7 Assessment Tool: JOSE CRUZ-7 Assessment 55222 Review of Systems Const All systems reviewed & are unremarkable except as noted in HPI and below Eyes Reports no additional complaints, Denies change in vision and Denies other visual disturbances Card Denies chest pain at rest, Denies chest pain with activity, Denies edema, Denies irregular heart rhythm, Denies claudication, Denies dyspnea, Denies dyspnea on exertion, Denies orthopnea, Denies paroxysmal nocturnal dyspnea and Denies slow heart rate Resp Denies cough, Denies dyspnea and Denies dyspnea on exertion GI Denies abdominal pain, Denies change in bowel habits, Denies excessive flatus, Denies nausea and Denies vomiting Denies urinary hesitancy, Denies urinary incontinence and Denies urinary urgency Musc Denies abnormal gait, Denies atrophy, Denies deformity and Denies limited range of motion Skin/Breast Denies bleeding lesions, Denies changing lesions and Denies rash Neuro Denies abnormal gait, Denies behavioral changes, Denies confusion and Denies lack of coordination Psych Denies behavioral changes and Denies confusion Physical exam (Primary Care) Vital Signs: Last Vital Signs BP 112/80 05/29/23 07:58 BMI result Body Mass Index 29.8 Tobacco/Smoking Status: Tobacco use Status Tobacco use date assessed 05/29/23 05/29/23 08:03 Patient Tobacco Use Status Former Tobacco user 05/29/23 08:03 Tobacco use type Cigar 05/29/23 08:03 e-Cigarette/Vaping Use Never Used 05/29/23 08:03 PHQ-9: PHQ-9 Score PHQ-9: Total score 4 05/29/23 08:35 Depression Screening Interpretation: Positive Depression Screening Follow-up: Existing condition Thrive Assessment: Date of Thrive Assessment Date Thrive assessed 05/29/23 05/29/23 08:03 Currently or been in a relationship where the following occur: no concerns reported Const General: No confusion Orientation/consciousness: patient oriented x3 and No confusion HENMT Head: Yes normal to inspection, Yes normocephalic and Yes atraumatic Ears: external ears normal Eyes General: appearance normal, both eyes and all related structures Eyelids: Yes eyelids normal Conjunctivae: conjunctivae normal Neck Neck: Yes normal visual inspection and Yes supple Resp Effort & Inspection: normal respiratory effort Auscultation: clear to auscultation bilaterally Cardio Jugular venous distension: no JVD Rate: regular rate Rhythm: regular rhythm Heart sounds: S1 normal heart sound present and S2 normal heart sound present GI Inspection: Yes normal to inspection Palpation (GI): Soft to palpation and nontender Auscultation: normal bowel sounds Skin General skin exam: no rashes or lesions noted Neuro General: patient oriented x3, no focal motor deficits and No confusion Extrem General: Yes full ROM Psych Appearance: grossly normal Office Procedures Flu Questionnaire Does the patient have a severe egg allergy?: No Immunizations flu vacc [id number] 6mos up(PF) 60 mcg(15 mcgx4)/0.5 mL IM syringe Performing Provider: Karlee Meraz MD [facility] Documented (not given) by: KRISTINE Boyd on 05/29/23 08:32 Reason Not Given: Patient Refused Assessment and Plan Assessment & Plan (1) Physical exam: Code(s): Z00.00 - Encounter for general adult medical examination without abnormal findings Plan: Repeat in a year. Orders: Orders Influenza [id number] Immunization Today Z23 - Encounter for immunization Lipid Panel Today Z00.00 - Encounter for general adult medical examination without abnormal findings Comprehensive [place]. Panel Fast Today R73.02 - Impaired glucose tolerance (oral) Thyroid Stimulating Hormone Today R63.4 - Abnormal weight loss Complete Blood Count Auto Diff Today R63.4 - Abnormal weight loss Coding Level of Care Code Est Pt Prev Care 40-64y(29170) Diagnoses Physical exam Z00.00 Additional Codes JOSE CRUZ-7 Assessment Billing - JOSE CRUZ-7 Assessment Tool: JOSE CRUZ-7 Assessment 28335 ([id number]) Time Spent (min) 32
== END 2023-05-29 08:38 | disposition home or self-care (01) ==
PROVIDERS: Visit Provider Internal Medicine
DX: Z00.00 Encounter for general adult medical examination without abnormal findings (principal)
CPT/HCPCS: 99396

== ENCOUNTER 2023-05-29 08:44 | Outpatient (REF) | payer OTHER, SELFPAY ==
[2023-05-29 09:10] LABS: MANUAL DIFF FLAG NO
[2023-05-29 10:30] LABS: Basophils Percent Auto 0.4 % (0-2); Eosinophils Absolute Auto 0.1 X10*3/uL (0.0-0.4); Eosinophils Percent Auto 2.7 % (0-4); Hematocrit 44.5 % (42.0-52.0); Hemoglobin 15.4 g/dl (14.0-18.0); Lymphocytes Absolute Auto 1.3 X10*3/uL (1.2-4.9); Lymphocytes Percent Auto 24.8 % (20-40); Mean Corpuscular HGB Conc 34.6 g/dl (31.0-36.0); Mean Corpuscular Hemoglobin 30.6 pg (27.0-33.0); Mean Corpuscular Volume 88.5 fL (80.0-98.0); Mean Platelet Volume 10.9 fL (9.4-12.4); Monocytes Absolute Auto 0.6 X10*3/uL (0.1-1.2); Monocytes Percent Auto 11.2 % (2-11); Neutrophils Absolute Auto 3.2 x10*3/uL (2.0-8.3); Neutrophils Percent Auto 60.9 % (45-73); Platelet Count 262 X10*3/uL (160-400); Red Blood Count 5.03 X10*6/uL (4.60-5.80); Red Cell Distribution Width 12.5 % (11.0-16.0); White Blood Count 5.3 X10*3/uL (4.8-10.8)
[2023-05-29 11:34] LABS: Alanine Aminotransferase 40 U/L (0-40); Albumin Level 4.1 g/dL (3.5-5.0); Alkaline Phosphatase 63 U/L (39-117); Anion Gap 12 (12-20); Aspartate Amino Transferase 20 U/L (5-37); Bilirubin Total 0.5 mg/dL (0.0-1.0); Blood Urea Nitrogen 14 mg/dL (9-16); Calcium 9.5 mg/dL (8.4-10.2); Carbon Dioxide 24 mmol/L (22-29); Chloride 108 mmol/L (96-108); Cholesterol 180 mg/dL (<200); Estimated Glomerular Filt Rate > 60; Glucose Fasting 121 mg/dL (60-99); HDL Cholesterol 48 mg/dL (>40); LDL Cholesterol Calculated 113 mg/dL (<100); Potassium 4.1 mmol/L (3.3-5.1); Sodium 140 mmol/L (135-145); Total Protein 7.2 g/dL (6.5-8.0); Triglycerides 95 mg/dL (<150)
== END 2023-05-29 08:45 | disposition home or self-care (01) ==
LOC: HO.LAB 08:44
PROVIDERS: PCP Internal Medicine; Visit Provider Internal Medicine
DX: Z00.00 Encounter for general adult medical examination without abnormal findings (principal); R63.4 Abnormal weight loss; R73.02 Impaired glucose tolerance (oral); I10 Essential (primary) hypertension
CPT/HCPCS: 36415; 80053; 80061; 84443; 85025

== ENCOUNTER 2024-06-03 08:09 | Outpatient (AMB) | payer OTHER, SELFPAY ==
--- NOTE | 2024-06-03 08:10 | MHC.PC.OV ---
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 Accompanied by: Self / Same As Patient Allergies No Known Allergies [No Known Allergies*] Allergy (Verified 06/03/24 08:28) Medication List - Last Reconciled 06/03/24 by Karlee Meraz MD ibuprofen 600 mg PO Q6H PRN Tobacco use date assessed: 06/03/24 Dental Screening Dental Screen Date: 06/03/24 Did you have a dental visit in the last 12 months?: No Did you have a dental problem in the last 6 months where you did not have access to dental care?: No Was dental information given to patient?: Patient has dentist HPI HPI Comments History of Present Illness Details The patient is a 44-year-old male presenting for an annual physical examination. He has a medical history that includes the surgical repair of an umbilical hernia, removal of a kidney stone via percutaneous nephrostomy, and surgery for a correction in the right eye. He denies any medication allergies but uses ibuprofen occasionally for pain management. The patient's family history is significant for mother's gastrointestinal complications without clear evidence of malignant conditions, and no known familial history of colorectal cancer. The patient experienced a left-sided chest discomfort occurring occasionally during physical activity, particularly at work. The discomfort is not present at rest. - Discussed administration of Tetanus vaccine, recommended every 10 years. - Offered influenza vaccination due to last vaccination being in 2020. - Colon cancer screening discussed, potential options include colonoscopy or Cologuard, due to the patient?s age (44). [facility] Medical History Physical exam Impaired glucose tolerance Umbilical hernia Skin lesion Chest pain Overweight (BMI 25.0-29.9) Renal calculi Pterygium of right eye Acute anal fissure Cataract Surgical History History of umbilical hernia repair (~03/04/21) History of removal of calculus of renal pelvis through percutaneous nephrostomy History of eye surgery History of laparoscopic appendectomy Family History Mother Constipation Digestive disorder Father No problems noted. Social History (Updated 06/03/24 @ 08:33 by Karlee Meraz MD) Household Members: Spouse and Children Housing: Apartment Do you presently have visiting nurse or other home services: Yes Alcohol intake: current Alcohol intake frequency: a few times a month Alcohol type: beer Patient Tobacco Use Status: Former Tobacco user Tobacco use type: Cigar e-Cigarette/Vaping Use: Never Used Second Hand Smoke Exposure: No service: No Current occupational status: employed Current occupational exposures/hazards: No Cognitive needs: No Hearing needs: No Vision needs: No Questionnaire PHQ-9 Over the last 2 weeks, how often have you been bothered by any of the following problems? 1. Little interest or pleasure in doing things: several days 2. Feeling down, depressed, or hopeless: several days 3. Trouble falling or staying asleep, or sleeping too much: several days 4. Feeling tired or having little energy: not at all 5. Poor appetite or overeating: not at all 6. Feeling bad about yourself - or that you are a failure or have let yourself or your family down: not at all 7. Trouble concentrating on things, such as reading the newspaper or watching television: not at all 8. Moving or speaking so slowly that other people could have noticed. Or the opposite - being so fidgety or restless that you have been moving around a lot more than usual: not at all 9. Thoughts that you would be better off or of hurting yourself in some way: not at all Total score: 3 Depression Screening Interpretation: Positive Depression Screening Follow-up: Existing condition and Follow-up Visit Requested Depression Screening Done: Yes 22900 - PHQ-9 Billing: Yes Source: Developed by Drs. Tello Smith, Teresa Diana, Adi Good and colleagues, with an educational karin from [employer]. Thrive Questionnaire Date Thrive assessed: 05/27/24 I am a: Parent/Caregiver What is your living situation today?: I have a steady place to live Within the past 12 months, did the food you bought not last and you didn't have the money to get more?: Sometimes True Within the past 12 months, did you worry whether your food would run out before you got money to buy more?: Often true Do you have trouble paying for medicines?: Yes Do you have trouble getting transportation to medical appointments?: No Do you have trouble paying your heating and electricity bill?: Yes Do you have trouble taking care of your child, family member or friend?: No Do you have trouble with day-to-day activities such as bathing, preparing meals, shopping, managing finances, etc.?: No Are you currently unemployed and looking for a job?: Yes Are you interested in more education?: Yes Please select the resources that you would like help with: Housing/Group Home, Food and Paying for medicine Currently or been in a relationship where the following occur: I choose not to answer THRIVE Score: 3 AUDIT C Alcohol Use Questionnaire (AUDIT-C) 1. How often do you have a drink containing alcohol?: 2-4 times a month 2. How many drinks containing alcohol do you have on a typical day when you are drinking?: 3 or 4 3. How often do you have six or more drinks on one occasion?: Never Total Score: 3 Score Reviewed/Action Taken: No JOSE CRUZ-7 AMB Questionnaire JOSE CRUZ-7 Date JOSE CRUZ - 7 assessed: 06/03/24 Feeling nervous, anxious, or on edge: 1 = Several days Not being able to stop or control worryin = Several days Worrying too much about different things: 3 = Nearly every day Trouble relaxin = Nearly every day Being so restless that it is hard to sit still: 1 = Several days Becoming easily annoyed or irritable: 1 = Several days Feeling afraid as if something awful might happen: 1 = Several days Total JOSE CRUZ-7 score (0-4 normal; 5-9 mild; 10-14 moderate; 15-21 severe): 11 Source: Developed by Drs. Tello Smith, Teresa Diana, Adi Good and colleagues, with an educational karin from [employer]. JOSE CRUZ-7 Assessment Billing JOSE CRUZ-7 Assessment Tool: JOSE CRUZ-7 Assessment 14218 Review of Systems Const All systems reviewed & are unremarkable except as noted in HPI and below Card Denies chest pain at rest, Denies chest pain with activity, Denies edema, Denies irregular heart rhythm, Denies claudication, Denies dyspnea, Denies dyspnea on exertion, Denies orthopnea, Denies paroxysmal nocturnal dyspnea and Denies slow heart rate Resp Denies cough, Denies dyspnea and Denies dyspnea on exertion GI Denies abdominal pain, Denies change in bowel habits, Denies excessive flatus, Denies nausea and Denies vomiting Neuro Denies behavioral changes and Denies lack of coordination Psych Denies behavioral changes Physical exam (Primary Care) Vital Signs: Last Vital Signs BP 110/72 06/03/24 08:12 BMI result Body Mass Index 28.7 Tobacco/Smoking Status: Tobacco use Status Tobacco use date assessed 06/03/24 06/03/24 08:18 Patient Tobacco Use Status Former Tobacco user 06/03/24 08:33 Tobacco use type Cigar 06/03/24 08:33 e-Cigarette/Vaping Use Never Used 06/03/24 08:33 PHQ-9: PHQ-9 Score PHQ-9: Total score 3 06/03/24 08:49 Depression Screening Interpretation: Positive Depression Screening Follow-up: Existing condition and Follow-up Visit Requested Thrive Assessment: Date of Thrive Assessment Date Thrive assessed 05/27/24 06/03/24 08:18 Currently or been in a relationship where the following occur: I choose not to answer HENMT Head: Yes normal to inspection, Yes normocephalic and Yes atraumatic Ears: external ears normal Eyes General: appearance normal, both eyes and all related structures Eyelids: Yes eyelids normal Conjunctivae: conjunctivae normal Neck Neck: Yes normal visual inspection and Yes supple Resp Effort & Inspection: normal respiratory effort Auscultation: clear to auscultation bilaterally Cardio Jugular venous distension: no JVD Rate: regular rate Rhythm: regular rhythm Heart sounds: S1 normal heart sound present and S2 normal heart sound present GI Inspection: Yes normal to inspection Palpation (GI): Soft to palpation and nontender Auscultation: normal bowel sounds Skin General skin exam: no rashes or lesions noted Neuro General: no focal motor deficits Extrem General: Yes full ROM Psych Appearance: grossly normal Office Procedures Flu Questionnaire Does the patient have a severe egg allergy?: No Does the patient have severe life threatening allergies?: No Does the patient have a fever or illness today?: No Has the patient ever had Guillain-Hastings Syndrome?: No Has the patient ever had any past reaction to a flu shot?: No Immunizations Fluarix Triv [id number] (PF) 45 mcg (15 mcg x 3)/0.5 mL IM syringe Performing Provider: Karlee Meraz MD Performing Location: [facility] Administered by: KRISTINE Boyd on 06/03/24 08:51 Dose Route Admin Location Dispensed Lot Number Expiration Date [facility] [employer] 0.5 mL IM Right Deltoid 0.5 mL [id number] 10/20/24 [id number] [employer] VIS Given Date VIS Provided VIS Publication Date 06/03/24 Single Vaccine 20 Eligibility Eligibility Date Funding Source Not VFC Eligible 06/03/24 Private Boostrix Tdap 2.5 Lf unit-8 mcg-5 Lf/0.5 mL intramuscular syringe Performing Provider: Karlee Meraz MD Performing Location: [facility] Administered by: KRISTINE Boyd on 06/03/24 08:51 Dose Route Admin Location Dispensed Lot Number Expiration Date [facility] [employer] 0.5 mL IM Left Deltoid 0.5 mL [id number] 07/12/26 [id number] [employer] VIS Given Date VIS Provided VIS Publication Date 06/03/24 Single Vaccine 20 Eligibility Eligibility Date Funding Source Not VFC Eligible 06/03/24 Private Coding Level of Care Code Est Pt Level 3 (70730) Est Pt Prev Care 40-64y(23566) Diagnoses Physical exam Z00.00 Chest pain R07.9 Additional Codes JOSE CRUZ-7 Assessment Billing - JOSE CRUZ-7 Assessment Tool: JOSE CRUZ-7 Assessment 43657 ([id number]) PHQ-9 - 47974 - PHQ-9 Billing: Yes ([id number]) Time Spent (min) 35 Assessment & Plan Assessment & Plan (1) Physical exam: Code(s): Z00.00 - Encounter for general adult medical examination without abnormal findings Category: Medical (2) Chest pain: Code(s): R07.9 - Chest pain, unspecified Category: Medical Plan - Recommend Tetanus and influenza vaccinations be administered today. - Schedule an electrocardiogram EKG) to evaluate episodes of exertional chest discomfort. - Follow-up required for colon cancer screening through colonoscopy or Cologuard based on patient preference. - Continue monitoring for any further family history of colorectal cancer. I discussed with the patient potential screening options for colon cancer, such as a colonoscopy every ten years or the Cologuard test administered at home with negative results leading to retesting in three years, and positive results necessitating a colonoscopy. We reviewed his history of prior surgeries and the implications for his current health maintenance strategy. The patient consented to today's vaccinations and agreed to consider the colon cancer screening options. I emphasized the importance of performing the EKG to ensure there are no underlying cardiovascular issues related to his exertional chest pain. Follow-up care and the necessity of future health assessments were also discussed. Patient was informed and verbally consented to the use of an ambient scribe for clinic note documentation during this visit. Orders: Orders Lipid Panel Today E78.5 - Hyperlipidemia, unspecified, Z00.00 - Encounter for general adult medical examination without abnormal findings TDaP Immunization Today Z23 - Encounter for immunization ECG 12 lead EKG Today R07.9 - Chest pain, unspecified Comprehensive [place]. Panel Fast Today Z00.00 - Encounter for general adult medical examination without abnormal findings Influenza [id number] Immunization Today Z23 - Encounter for immunization Referrals Cologuard Test Z12.11 - Encounter for screening for malignant neoplasm of colon, Z12.12 - Encounter for screening for malignant neoplasm of rectum Patient Instructions: - Receive the tetanus and influenza vaccinations. - Schedule an EKG test as recommended. - Choose and complete a colorectal cancer screening option. - Maintain awareness of any future episodes of chest discomfort. - Continue current lifestyle habits and avoid smoking.
[2024-06-03 08:12] VITALS: BP 110/72; BMI 28.7
== END 2024-06-03 08:45 | disposition home or self-care (01) ==
PROVIDERS: PCP Internal Medicine; Visit Provider Internal Medicine
DX: Z00.00 Encounter for general adult medical examination without abnormal findings (principal); R07.9 Chest pain, unspecified; Z23 Encounter for immunization

== ENCOUNTER → 2024-06-03 08:09 | Outpatient (BNVA) | payer OTHER, SELFPAY | PROVIDERS: PCP Internal Medicine; Visit Provider Internal Medicine | DX: Z00.01 Encounter for general adult medical examination with abnormal findings (principal); Z23 Encounter for immunization; R07.9 Chest pain, unspecified; Z87.891 Personal history of nicotine dependence | CPT/HCPCS: 90471; 90472; 90656; 90715; 96127; 99212; 99396 ==

== ENCOUNTER → 2024-06-13 11:36 | Outpatient (REF) | payer OTHER, SELFPAY ==
--- NOTE | 2024-06-13 11:42 | ECG_ITS ---
Test Reason : CHEST PAIN Blood Pressure : */* mmHG Vent. Rate : 59 BPM Atrial Rate : 59 BPM P-R Int : 128 ms QRS Dur : 92 ms QT Int : 408 ms P-R-T Axes : 65 47 32 degrees QTcB Int : 403 ms Sinus bradycardia Otherwise normal ECG When compared with ECG of 04-Jan-2021 08:57, No significant change was found Referred By: Karlee Meraz Electronically Signed By: KAYLA BECERRA
[2024-06-13 14:13] LABS: Alanine Aminotransferase 37 U/L (0-40); Albumin Level 4.2 g/dL (3.5-5.0); Alkaline Phosphatase 68 U/L (39-117); Anion Gap 12 (12-20); Aspartate Amino Transferase 21 U/L (5-37); Bilirubin Total 0.8 mg/dL (0.0-1.0); Blood Urea Nitrogen 12 mg/dL (9-16); Calcium 9.8 mg/dL (8.4-10.2); Carbon Dioxide 26 mmol/L (22-29); Chloride 105 mmol/L (96-108); Cholesterol 181 mg/dL (<200); Estimated Glomerular Filt Rate > 60; Glucose Fasting 109 mg/dL (60-99); HDL Cholesterol 55 mg/dL (>40); LDL Cholesterol Calculated 110 mg/dL (<100); Potassium 4.2 mmol/L (3.3-5.1); Sodium 139 mmol/L (135-145); Total Protein 7.7 g/dL (6.5-8.0); Triglycerides 82 mg/dL (<150)
== END ==
LOC: HO.CARD 11:36
PROVIDERS: PCP Internal Medicine; Visit Provider Internal Medicine
DX: Z00.00 Encounter for general adult medical examination without abnormal findings (principal); R07.9 Chest pain, unspecified; E78.5 Hyperlipidemia, unspecified
CPT/HCPCS: 36415; 80053; 80061; 93005

== ENCOUNTER → 2024-06-13 11:42 | Outpatient (BNV) | payer OTHER, SELFPAY | PROVIDERS: PCP Internal Medicine; Visit Provider Internal Medicine | DX: R07.9 Chest pain, unspecified (principal); R00.1 Bradycardia, unspecified | CPT/HCPCS: 93010 ==

== ENCOUNTER 2024-09-22 13:57 | Outpatient (AMB) | payer OTHER, SELFPAY ==
--- NOTE | 2024-09-22 14:03 | MHC.OFFVIS ---
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 History was obtained with help of certified court interpreter over the phone. Patient says last year he started having chest pain which she describes precordial pain which is sharp in nature. These pains are not exertional in nature. He underwent a stress test which at high workload was negative for ischemia. Patient was referred here for chest pain syndrome at this point time. He has no significant cardiovascular risk factors. Denies any significant family history of premature coronary artery disease. Currently not taking any medications. [facility] Medical History Physical exam Impaired glucose tolerance Umbilical hernia Skin lesion Chest pain Overweight (BMI 25.0-29.9) Renal calculi Pterygium of right eye Acute anal fissure Cataract Surgical History History of umbilical hernia repair (~03/04/21) History of removal of calculus of renal pelvis through percutaneous nephrostomy History of eye surgery History of laparoscopic appendectomy Family History Mother Constipation Digestive disorder Father No problems noted. Social History Household Members: Spouse and Children Housing: Apartment Do you presently have visiting nurse or other home services: Yes Alcohol intake: current Alcohol intake frequency: a few times a month Alcohol type: beer Patient Tobacco Use Status: Former Tobacco user Tobacco use type: Cigar e-Cigarette/Vaping Use: Never Used Second Hand Smoke Exposure: No service: No Current occupational status: employed Current occupational exposures/hazards: No Cognitive needs: No Hearing needs: No Vision needs: No Review of Systems Const Denies chills, Denies daytime sleepiness, Denies fatigue, Denies fever(s), Denies frequent falls, Denies poor appetite, Denies snoring, Denies stops breathing during sleep, Denies weakness, Denies weight gain and Denies weight loss Eyes Denies loss of vision ENT Denies dizziness and Denies hearing loss Card Denies chest pain, Denies claudication, Denies leg edema, Denies lightheadedness, Denies palpitations, Denies dyspnea, Denies dyspnea on exertion and Denies orthopnea Resp Denies cough, Denies excessive phlegm production, Denies dyspnea, Denies dyspnea on exertion, Denies snoring and Denies wheezing GI Denies abdominal pain, Denies hematochezia, Denies change in bowel habits, Denies nausea and Denies vomiting Denies dysuria and Denies urinary frequency Musc Denies arthralgias, Denies muscle weakness, Denies numbness and Denies other (frequent falls) Skin/Breast Denies nail changes and Denies rash Neuro Denies Abnormal speech present, Denies dizziness, Denies frequent falls, Denies loss of vision, Denies memory loss, Denies numbness and Denies weakness Psych Denies depression and Denies memory loss Endo Denies fatigue and Denies palpitations Jeromy/Lymph Reports easy bruising and Reports other (anemia) Aller/Immun Denies wheezing Physical Exam Vital Signs: Last Vital Signs Pulse 98 09/22/24 14:04 BP 114/66 09/22/24 14:04 BMI result Body Mass Index 28.8 Const General: cooperative, comfortable, no acute distress, alert and awake Nutritional Appearance: overweight Orientation/consciousness: patient oriented x3 Limitations: no limitations HEENT Head: Yes normocephalic and Yes atraumatic Neck Neck: Yes trachea midline, Yes supple and Yes no JVD Resp Effort & Inspection: normal respiratory effort Auscultation: clear to auscultation bilaterally Cardio Jugular venous distension: no JVD Palpation: normal PMI Rate: regular rate Rhythm: regular rhythm Heart sounds: S1 normal heart sound present, S2 normal heart sound present, no click, no gallops and no murmurs GI Auscultation: normal bowel sounds Skin General skin exam: no rashes or lesions noted Neuro General: patient oriented x3 and no focal motor deficits Speech: No Abnormal speech present Extrem General: Yes no clubbing, cyanosis or edema Psych Appearance: grossly normal Office Procedures EKG Details: EKG shows normal sinus rhythm with normal EKG [id number], Complete Assessment & Plan Assessment & Plan (1) Chest pain: Code(s): R07.9 - Chest pain, unspecified Category: Medical Plan: Patient with chest pain syndrome which is atypical and appears to be nonischemic. Stress test from last year was within normal limits. He has not had any change in his chest pain pattern at this point time. No further workup from cardiac perspective as indicated. I discussed with him about potentially doing coronary calcium score to assess for presence of coronary atherosclerosis if he is interested. He will think about it. Will follow up in the clinic if need be. Thank you for allowing me to partake in his care Coding Level of Care Code New Pt Level 3 (03534) Complex EM visit Add On G2211 Diagnoses Chest pain R07.9 CPT Codes EKG - CPT: [id number]-[id number], Complete ([id number])
[2024-09-22 14:04] VITALS: BP 114/66; PULSE 98; BMI 28.8
== END 2024-09-22 14:30 | disposition home or self-care (01) ==
LOC: HO.HCS 13:58
PROVIDERS: PCP Internal Medicine; Visit Provider Internal Medicine Cardiovascular Disease
DX: R07.9 Chest pain, unspecified (principal)
CPT/HCPCS: 93010; 99203; G2211

== ENCOUNTER → 2024-09-22 13:57 | Outpatient (BNVA) | payer OTHER, SELFPAY | PROVIDERS: PCP Internal Medicine; Visit Provider Internal Medicine Cardiovascular Disease | DX: R07.9 Chest pain, unspecified (principal) | CPT/HCPCS: 93005; 99202 ==

== ENCOUNTER 2025-02-08 16:18 | Emergency (ER) | payer OTHER, SELFPAY ==
--- NOTE | ~2025-02-08 | XR_ITS ---
CLINICAL HISTORY: severe pain x 2 days Exam: AP, lateral, and spot lateral views of the lumbar spine. Comparison: None provided. Findings: Moderate convex right mid lumbar curvature with apex at L2-3. There straightening of the normal lumbar lordosis on the lateral view. No fracture. Moderate to severe degenerative disc disease at L5-S1 with minor degenerative disc disease at L4-5. Limbus vertebrae seen at the anterosuperior corner of the L4 vertebral body. Impression: 1. No acute fracture. 2. Findings suggestive of muscle spasm. 3. Degenerative changes as above. This document has been electronically signed by: Gagan Gamino MD on 02/08/2025 17:13:20
[2025-02-08 16:40] VITALS: BP 139/74; PULSE 82; RESP 16; TEMP 36.4; O2SAT 98; BMI 27.9
--- NOTE | 2025-02-08 16:40 | ED.GENADULT ---
HPI - General Adult General Chief complaint: Back Pain/Injury Stated complaint: low back pain Time Seen by Provider: 02/08/25 17:18 Source: patient, RN notes reviewed, old records reviewed and machine printer hose Mode of arrival: ambulatory Limitations: language barrier History of Present Illness ED Provider: Catalino HPI narrative: Patient is a 45 year old male presenting to the ED with complaint of lower back pain for the past 2 days. Denies fall or other trauma. Denies recent heavy lifting. Denies saddle anesthesia or bowel or bladder incontinence. Denies fevers. Pain worsens with movement. complaint: back pain Related Data Previous Rx's ?Medication ?Instructions ?Recorded ibuprofen 600 mg tablet 600 mg PO Q6H PRN fever or pain 02/05/23 #30 tabs cyclobenzaprine 10 mg tablet 10 mg PO TID PRN muscle spasm #14 02/08/25 tabs lidocaine 5 % topical patch 1 patch topical DAILY #15 ea 02/08/25 Allergies Allergy/AdvReac Type Severity Reaction Status Date / Time No Known Allergies (No Known Allergy Verified 02/08/25 16:42 Allergies*) Review of Systems Review of Systems: As per HPI Yes all other systems are reviewed and are negative Constitutional: Constitutional: Reports as per HPI [facility] Past Medical History Medical History Physical exam Impaired glucose tolerance Umbilical hernia Skin lesion Chest pain Overweight (BMI 25.0-29.9) Renal calculi Pterygium of right eye Acute anal fissure Cataract Surgical History History of umbilical hernia repair (~03/04/21) History of removal of calculus of renal pelvis through percutaneous nephrostomy History of eye surgery History of laparoscopic appendectomy Family History Family History Mother Constipation Digestive disorder Father No problems noted. Social History Social History Household Members: Spouse and Children Housing: Apartment Do you presently have visiting nurse or other home services: Yes Alcohol intake: current Alcohol intake frequency: a few times a month Alcohol type: beer Patient Tobacco Use Status: Former Tobacco user Tobacco use type: Cigar e-Cigarette/Vaping Use: Never Used Second Hand Smoke Exposure: No service: No Current occupational status: employed Current occupational exposures/hazards: No Cognitive needs: No Hearing needs: No Vision needs: No Physical Exam ED Vital Signs: Vital Signs - 24 hr 02/08/25 16:40 02/08/25 16:59 Temperature 97.6 F 97.7 F Pulse Rate 82 82 Respiratory Rate 16 20 Blood Pressure 139/74 134/95 H Pulse Oximetry 98 97 Oxygen Delivery Method Room Air Room Air BMI result Body Mass Index 27.9 Vital signs have been reviewed and appear to be correct. Blood pressure normal. Heart rate normal. Respiratory rate normal. Temperature normal. Oxygen saturation normal. Const General: cooperative, healthy appearing and no acute distress Orientation/consciousness: oriented to person, oriented to place, oriented to time and patient oriented x3 Limitations: no limitations HENMT Head: Yes normocephalic and Yes atraumatic Ears: external ears normal General nose exam: Normal external nose present Face and sinus: Yes face symmetric Mouth: oropharynx normal and moist mucous membranes Throat: Yes uvula midline Eyes Pupils: Equal, round and reactive pupils present Neck Neck: Yes normal visual inspection and Yes supple Resp Effort & Inspection: normal respiratory effort and able to speak in complete sentences Auscultation: clear to auscultation bilaterally Cardio Rate: regular rate Rhythm: regular rhythm Heart sounds: S1 normal heart sound present and S2 normal heart sound present GI Palpation (GI): Soft to palpation and nontender Auscultation: normoactive bowel sounds General: Yes no CVA tenderness Back/Spine/Pelvis Back: no CVA tenderness Thoracic/Lumbar Spine: thoracic and lumbar spine normal to inspection, thoraco-lumbar ROM normal, straight leg raise negative bilaterally, pain with thoraco-lumbar ROM, paraspinal muscle tenderness on the left in the mid lumbar, thoraco-lumbar spasm on the left in the mid lumbar, No thoracic spinal tenderness and No lumbar spinal tenderness Skin General skin exam: elasticity normal and turgor normal Neuro General: oriented to person, oriented to place, oriented to time, patient oriented x3, moves all extremities, no focal motor deficits and CN's II-XI intact bilaterally Cranial nerves: Yes Equal, round and reactive pupils present Cognition (Neuro): normal cognition Extrem General: Yes full ROM, Yes no pedal edema and Yes no calf tenderness Psych Mental Status: mental status grossly normal Affect: normal affect Thought process: Normal thought process present Course Course Course Narrative: This is a rapid medical exam performed by Rae Bae NP: Additional HPI, ROS, PE not included below will be deferred to primary provider. Patient is a 45y/o M presenting with complaint of lower back pain for the past 2 days. Plan: xray Medical Decision Making Medical Decision Making [facility] Narrative: Patient is a 45 year old male presenting to the ED with complaint of lower back pain for the past 2 days. On exam patient is awake, A+Ox3, VS WNL, afebrile, normal neurological exam without focal deficits, physical exam findings as above. Given reported symptoms and physical exam findings, initial differential includes but is not limited to initial differential includes lumbar strain, lumbar radiculopathy, degenerative disc disease, disc herniation, spinal stenosis, spondylosis. Less likely vertebral fracture. Do not suspect malignancy/mass, SEA, cauda equina/cord compression. X-ray lumbar spine notable for no acute fracture, findings suggestive of muscle spasm. My interpretation is in agreement with the radiologist's interpretation. Results discussed with patient and all questions answered. Will send prescription for Flexeril and topical lidocaine patches, advised patient alternate Tylenol and ibuprofen. Encouraged patient to perform gentle movements daily but to avoid heavy lifting or exercising until pain improves. Patient medicated with toradol in the ED. Follow up with PCP as needed. Return precautions discussed. Patient verbalized understanding of and agreement with plan. In-person venetian blind machine operator was utilized for all interactions, assessments, and discussions. Differential Diagnosis Differential Diagnoses: The differential diagnosis associated with the presentation includes As per [facility] Admission/Observation Consideration of admission/observation: Escalation of care including admission/observation considered Patient would have been admitted to the hospital and transferred to appropriate facility had their clinical presentation warranted hospital admission. Independent Interpretation I performed an independent interpretation of an: Plain X-Ray Interpretation: X-ray lumbar spine notable for no acute fracture, findings suggestive of muscle spasm. Radiology Impression Discussion of test interpretation with radiology: I have reviewed the radiologist's reading. Radiologist Impression: Findings: Moderate convex right mid lumbar curvature with apex at L2-3. There straightening of the normal lumbar lordosis on the lateral view. No fracture. Moderate to severe degenerative disc disease at L5-S1 with minor degenerative disc disease at L4-5. Limbus vertebrae seen at the anterosuperior corner of the L4 vertebral body. Impression: 1. No acute fracture. 2. Findings suggestive of muscle spasm. 3. Degenerative changes as above. External Record Review External record reviewed: Inpatient record, Office record and Outpatient record Prescription Management I considered prescription management with: Pain Medication and Other Discharge Plan Discharge Clinical Impression: Strain of lumbar region Patient Disposition: Home, Self-Care Instructions: Low Back Strain (ED), Back Pain (ED), Lower Back Exercises (ED) Additional Instructions: You were evaluated in the emergency department today for back pain. Your evaluation did not show signs of medical conditions requiring emergent intervention at this time. We recommended that you use ibuprofen or Tylenol per package directions every 6 hours as needed for pain. If necessary, you can alternate these medications so that you take one medication every 3 hours. For instance, at noon take ibuprofen, then at 3:00 p.m. take Tylenol, then at 6:00 p.m. take ibuprofen. You have been prescribed a muscle relaxer called Flexeril (cyclobenzaprine) which you may take every 8 hours as needed for spasms. Do not drive, drink alcohol, or operate heavy machinery while taking this as it can cause drowsiness. You have been prescribed 5% topical lidocaine patches which you can wear for up to 12 hours in a 24 hour period. Do not apply heat directly over the patches. Please schedule an appointment for follow-up with your primary care physician this week for further evaluation of your symptoms. Return to the emergency department if you experience worsening back pain, difficulty walking, fevers, numbness, tingling, incontinence, groin numbness or tingling, or any other concerning symptoms. Prescriptions: New cyclobenzaprine 10 mg tablet 10 mg PO TID PRN (Reason: muscle spasm) Qty: 14 0RF lidocaine 5 % adhesive patch,medicated 1 patch topical DAILY Qty: 15 0RF Rx Instructions: leave on most painful area for up to 12 hrs No Action ibuprofen 600 mg tablet 600 mg PO Q6H PRN (Reason: fever or pain) Qty: 30 0RF Referrals: Karlee Newton MD [Primary Care Provider, Internal Medicine] Clinical Impression: Strain of lumbar region Stand Alone Forms: Work/School Release Print Language: Lebanese
[2025-02-08 16:59] VITALS: BP 134/95; PULSE 82; RESP 20; TEMP 36.5; O2SAT 97
[2025-02-08 17:37] VITALS: BP 134/95; PULSE 82; RESP 20; TEMP 36.5; O2SAT 97
== END 2025-02-08 17:37 | disposition home or self-care (01) ==
PROVIDERS: Emergency Provider Student in an Organized Health Care Education/Training Program; PCP Internal Medicine
DX: S39.012A Strain of muscle, fascia and tendon of lower back, initial encounter (principal); X58.XXXA Exposure to other specified factors, initial encounter; Y93.9 Activity, unspecified; Y92.9 Unspecified place or not applicable
CPT/HCPCS: 72100; 96372; 99283; 99284; J1885

== ENCOUNTER → 2025-02-08 16:41 | Outpatient (BNV) | payer OTHER, SELFPAY | PROVIDERS: Emergency Provider Student in an Organized Health Care Education/Training Program; PCP Internal Medicine; Visit Provider Radiology Diagnostic Radiology | DX: M51.370 Other intervertebral disc degeneration, lumbosacral region with discogenic back pain only (principal) | CPT/HCPCS: 72100 ==

== ENCOUNTER 2025-02-10 11:10 | Outpatient (AMB) | payer OTHER, SELFPAY ==
[2025-02-10 11:14] VITALS: BP 138/82; PULSE 72; TEMP 36.1; O2SAT 97; BMI 28.8
--- NOTE | 2025-02-10 11:14 | A.OFFPC_ITS ---
Vital Signs 02/10/25 11:14 Height 5 ft 11 in Weight 206 lb 6 oz BMI 28.8 BP 138/82 Blood Pressure Location Lt brachial Position Sitting Pulse 72 Pulse Source Pulse Oximeter Temp 97.0 F Temp Source Temporal Artery Scan Pulse Oximetry (%) 97 Oxygen Delivery Method Room Air Intake Visit Reasons: [facility] 02/08 low back pain [employer]acher [employer] Required: Yes [employer]acher [employer] Language: Sami Accompanied by: Spouse Allergies No Known Allergies (No Known Allergies*) Allergy (Verified 02/10/25 11:17) Medication List - Last Reconciled 02/10/25 by Linda Buckley MD cyclobenzaprine 10 mg PO TID PRN ibuprofen 600 mg PO Q6H PRN lidocaine 5% 1 patch topical DAILY Tobacco use date assessed: 02/10/25 Dental Screening Dental Screen Date: 02/10/25 Did you have a dental visit in the last 12 months?: Yes Did you have a dental problem in the last 6 months where you did not have access to dental care?: No Was dental information given to patient?: Patient has dentist HPI HPI Comments History of Present Illness Details The patient is a 45-year-old male presenting with back pain. The back pain has become severe and unmanageable, prompting a visit to the emergency room where he was referred to his primary care physician. The pain is described as very hard, and the patient has been using patches, Fl exeril, ibuprofen, and Tylenol for management. Despite these interventions, the pain persists, and he was diagnosed with muscle spasms at the emergency department two days prior. The patient also reports chronic redness in his eyes, having undergone three surgeries on the right eye. He does not have a current appointment with his eye doctor but plans to follow up due to the persistent redness. [facility] Medical History Physical exam Impaired glucose tolerance Umbilical hernia Skin lesion Chest pain Overweight (BMI 25.0-29.9) Renal calculi Pterygium of right eye Acute anal fissure Cataract Surgical History History of umbilical hernia repair (~03/04/21) History of removal of calculus of renal pelvis through percutaneous nephrostomy History of eye surgery History of laparoscopic appendectomy Family History Mother Constipation Digestive disorder Father No problems noted. Social History Household Members: Spouse and Children Housing: Apartment Do you presently have visiting nurse or other home services: Yes Alcohol intake: current Alcohol intake frequency: a few times a month Alcohol type: beer Patient Tobacco Use Status: Former Tobacco user Tobacco use type: Cigar e-Cigarette/Vaping Use: Never Used Second Hand Smoke Exposure: No service: No Current occupational status: employed Current occupational exposures/hazards: No Cognitive needs: No Hearing needs: No Vision needs: No Questionnaire PHQ-9 Over the last 2 weeks, how often have you been bothered by any of the following problems? 1. Little interest or pleasure in doing things: several days 2. Feeling down, depressed, or hopeless: several days 3. Trouble falling or staying asleep, or sleeping too much: several days 4. Feeling tired or having little energy: not at all 5. Poor appetite or overeating: not at all 6. Feeling bad about yourself - or that you are a failure or have let yourself or your family down: not at all 7. Trouble concentrating on things, such as reading the newspaper or watching television: not at all 8. Moving or speaking so slowly that other people could have noticed. Or the opposite - being so fidgety or restless that you have been moving around a lot more than usual: not at all 9. Thoughts that you would be better off or of hurting yourself in some way: not at all Total score: 3 Depression Screening Interpretation: Positive Depression Screening Follow-up: Existing condition and Follow-up Visit Requested Depression Screening Done: Yes Source: Developed by Drs. Tello Smith, Teresa Diana, Adi Good and colleagues, with an educational karin from [employer]. Thrive Questionnaire Date Thrive assessed: 05/27/24 I am a: Parent/Caregiver What is your living situation today?: I have a steady place to live Within the past 12 months, did the food you bought not last and you didn't have the money to get more?: Sometimes True Within the past 12 months, did you worry whether your food would run out before you got money to buy more?: Often true Do you have trouble paying for medicines?: Yes Do you have trouble getting transportation to medical appointments?: No Do you have trouble paying your heating and electricity bill?: Yes Do you have trouble taking care of your child, family member or friend?: No Do you have trouble with day-to-day activities such as bathing, preparing meals, shopping, managing finances, etc.?: No Are you currently unemployed and looking for a job?: Yes Are you interested in more education?: Yes Currently or been in a relationship where the following occur: I choose not to answer THRIVE Score: 3 AUDIT C Alcohol Use Questionnaire (AUDIT-C) 1. How often do you have a drink containing alcohol?: 2-4 times a month 2. How many drinks containing alcohol do you have on a typical day when you are drinking?: 3 or 4 3. How often do you have six or more drinks on one occasion?: Never Total Score: 3 Score Reviewed/Action Taken: No JOSE CRUZ-7 AMB Questionnaire JOSE CRUZ-7 Date JOSE CRUZ - 7 assessed: 06/03/24 Feeling nervous, anxious, or on edge: 1 = Several days Not being able to stop or control worryin = Several days Worrying too much about different things: 3 = Nearly every day Trouble relaxin = Nearly every day Being so restless that it is hard to sit still: 1 = Several days Becoming easily annoyed or irritable: 1 = Several days Feeling afraid as if something awful might happen: 1 = Several days Total JOSE CRUZ-7 score (0-4 normal; 5-9 mild; 10-14 moderate; 15-21 severe): 11 Source: Developed by Drs. Tello Smith, Teresa Diana, Adi Good and colleagues, with an educational karin from [employer]. Physical exam (Primary Care) Vital Signs: Last Vital Signs Temp 97.0 F 02/10/25 11:14 Pulse 72 02/10/25 11:14 BP 138/82 02/10/25 11:14 Pulse Ox 97 02/10/25 11:14 Oxygen Delivery Method Room Air 02/10/25 11:14 BMI result Body Mass Index 28.8 Tobacco/Smoking Status: Tobacco use Status Tobacco use date assessed 02/10/25 02/10/25 11:18 Patient Tobacco Use Status Former Tobacco user 02/10/25 11:18 Tobacco use type Cigar 02/10/25 11:18 e-Cigarette/Vaping Use Never Used 02/10/25 11:18 PHQ-9: PHQ-9 Score PHQ-9: Total score 3 02/10/25 11:18 Depression Screening Interpretation: Positive Depression Screening Follow-up: Existing condition and Follow-up Visit Requested Thrive Assessment: Date of Thrive Assessment Date Thrive assessed 05/27/24 02/10/25 11:18 Currently or been in a relationship where the following occur: I choose not to answer Coding Level of Care Code Est Pt Level 3 (02934) Diagnoses Sprain of low back, initial encounter S33.5XXA Encounter type: initial encounter Assessment & Plan Assessment & Plan (1) Low back sprain: Code(s): S33.5XXA - Sprain of ligaments of lumbar spine, initial encounter Category: Medical Qualifiers: Encounter type: initial encounter Qualified Code(s): S33.5XXA - Sprain of ligaments of lumbar spine, initial encounter Plan: Advised patient that his symptoms might take a little bit of time before it improves. Increased the patient Ibuprofen dose to 800 mg Daily. Patient reports no Gastric ulcer, or kidney problems. Advised patient for light lifting. OTC Tylenol. Continue Cyclobenzaprine and lidocaine patch ordered by ED. Plan I discussed with the patient the management of his back pain, including increasing the ibuprofen dosage and alternating with Tylenol and cyclobenzaprine as per the emergency department's advice. We also addressed his work situation, providing a letter to excuse him from heavy lifting for a week. Regarding his eye redness, I recommended a follow-up with his improvement advisor due to the history of surgeries and persistent symptoms. Medications: Changed From ibuprofen 600 mg PO Q6H PRN 30 tabs 0RF fever or pain To ibuprofen 800 mg (1.3333 x 600 mg) PO Q6H PRN 30 tabs 0RF fever or pain
== END 2025-02-10 11:41 | disposition home or self-care (01) ==
LOC: HO.HMCH 11:11
PROVIDERS: PCP Internal Medicine; Visit Provider Internal Medicine
DX: S33.5XXA Sprain of ligaments of lumbar spine, initial encounter (principal)

== ENCOUNTER → 2025-02-10 11:10 | Outpatient (BNVA) | payer OTHER, SELFPAY | PROVIDERS: PCP Internal Medicine; Visit Provider Internal Medicine | DX: S33.5XXA Sprain of ligaments of lumbar spine, initial encounter (principal) | CPT/HCPCS: 99212 ==